=== PATIENT | male | born 1930 | race Caucasian/White ===

== ENCOUNTER 2016-08-26 06:51 | Day surgery (SDC) | payer MEDICARE, BC ==
--- NOTE | 2016-08-25 14:49 | NUR ---
PACEMAKER MODEL# [id number] SERIAL # [id number] GAMMA RAY OPERATOR :OparaTRONIC X [id number] IMPLANT DATE : 11/16/2011 PLACEMENT : Merry SALMON SQ DR: JORDYN KUNZ [phone]
[~2016-08-26] VITALS: Ht 185.4 cm; Wt 100.5 kg
[~2016-08-26 06:51] MED LIST: AMLO2.5T2 PO; ASPI-730 PO; CARV6.25 PO; FINA5TAB40 PO; GLIM4TAB3 PO; METF-206 PO; NAPR220C11 PO; PRAV20TA48 PO
--- OUTSIDE RECORDS SUMMARY | 2016-08-26 06:55 | XMS REPORT | Referral Summary ---
Author Author [facility], Family Medicine Organization [facility] Address Unknown Phone Unavailable Care Team Providers Care Structural Draftsman Name Role Phone Wali Broussard Primary Care Physician [phone] Encounter Date(s): 10/07/15 - 10/07/15 [facility], [address] [place] [address]- Discharge Disposition: 01-Home or Self Care Attending Physician: Fermín Broussard MD Admitting Physician: Fermín Broussard MD Vital Signs Most recent to 1 oldest [Reference Range]: Blood Pressure 128/64 mmHg [90-140/60-90 mmHg] (10/07/15 11:10 AM) Problem List Condition Effective Dates Status Health Status Informant hx of acute Active prostatitis, elevated PSA,& 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, pacemaker insertec(Confirmed)1 High Active Cholesterol(Confirme d) Hypertension/High Active BP(Confirmed) Encounter for Active prostate cancer screening(Confirmed) Diabetes-Type Active 2(Confirmed) Chicken Active Pox(Confirmed) 1DrRahat Elizabeth is EP doctor Allergies, Adverse Reactions, Alerts Substance Reaction Severity Status Biaxin Active hydrochlorothiazide ITCHING Active lisinopril ITCHING Active Medications Aleve mg, Oral, q8hr, as needed for pain, 0 Refill(s) Start Date: 02/21/14 Status: Ordered Amaryl 4 mg oral tablet See Instructions, TAKE ONE TABLET BY MOUTH TWICE A DAY, # 180 tabs, 1 Refill(s) , eRx: [facility] #[id number], TAKE ONE TABLET BY MOUTH TWICE A DAY Start Date: 05/19/15 Status: Ordered aspirin 325 mg, Oral, Daily, 0 Refill(s) Start Date: 09/09/13 Status: Ordered Contour Test strips Contour Test strips, See Instructions, Use to test blood sugar once daily. DX E11.9, # 100 Each, 3 Refill(s), Pharmacy: [facility] #[id number], Use to test blood sugar once daily. ; DX E11.9 Start Date: 08/06/15 Status: Ordered Coreg 6.25 mg oral tablet tabs, Oral, BID, Take 1 tablet by oral route BID QD with food., 0 Refill(s) Start Date: 09/09/13 Status: Ordered finasteride 5 mg oral tablet See Instructions, TAKE ONE TABLET BY MOUTH EVERY NIGHT AT BEDTIME, # 90 tabs, eRx: [facility] #[id number], TAKE ONE TABLET BY MOUTH EVERY NIGHT AT BEDTIME Start Date: 09/15/15 Status: Ordered Glucometer Lancets (DME) DME Item 31 gauge, test blood sugars daily DX:250.00, See Instructions, # 1 Each , 0 Refill(s), Supply Start Date: 09/09/13 Status: Ordered metFORMIN 1000 mg oral tablet See Instructions, TAKE ONE TABLET BY MOUTH TWICE A DAY Need appt in October, # 60 tabs, 0 Refill(s), Pharmacy: [facility] #[id number], TAKE ONE TABLET BY MOUTH TWICE A DAY; Need appt in October Start Date: 09/22/15 Status: Ordered Norvasc 2.5 mg oral tablet See Instructions, TAKE ONE TABLET BY MOUTH EVERY DAY, # 90 tabs, 3 Refill(s), eRx: [facility] #[id number], TAKE ONE TABLET BY MOUTH EVERY DAY Start Date: 03/10/15 Status: Ordered pravastatin 20 mg oral tablet See Instructions, TAKE ONE TABLET BY MOUTH EVERY DAY, # 90 tabs, eRx: [facility] #[id number], TAKE ONE TABLET BY MOUTH EVERY DAY Start Date: 09/15/15 Status: Ordered Results No data available for this section Immunizations Vaccine Date Refusal Reason influenza virus vaccine, live 01/11/12 tetanus-diphth toxoids (Td) adult/adol 04/24/02 Procedures Procedure Date Related Diagnosis Body Site Colonoscopy1 07/22/14 Heart Cath2 07/2011 Abnormal Treadmill3 06/2011 Eye Lid Surgeries4 12/25/10 Colonoscopies5 08/26/05 Pacemaker Second Degree Block 2003 Back surgery6 1999 Bilateral Carpal Tunnel Release 1998 Back surgery7 1979 Vasectomy 1973 Appendectomy 1952 Adenoidectomy 1936 Tonsillectomy 1936 1Diverticulosis, hyperplastic polyp, likely not need to repeat unless symptoms warrant. 2normal 3apical ischemia 4BLEPH/PTOSIS OU 5WNL,REPEAT 10 YES. 6repeat 7herniated disc from sneezing Social History Social History Type Response Smoking Status Former smoker Assessment and Plan Extracted from: Title: Ambulatory Patient Education Author: Fermín Broussard MD Date: Family Medicine Diabetes and Foot Care Diabetes may cause you to have problems because of poor blood supply ( circulation) to your feet and legs. This may cause the skin on your feet to become thinner, break easier, and heal more slowly. Your skin may become dry, and the skin may peel and crack. You may also have nerve damage in your legs and feet causing decreased feeling in them. You may not notice minor injuries to your feet that could lead to infections or more serious problems. Taking care of your feet is one of the most important things you can do for yourself. HOME CARE INSTRUCTIONS Wear shoes at all times, even in the house. Do not go barefoot. Bare feet are easily injured. Check your feet daily for blisters, cuts, and redness. If you cannot see the bottom of your feet, use a mirror or ask someone for help. Wash your feet with warm water (do not use hot water) and mild soap. Then pat your feet and the areas between your toes until they are completely dry. Do not soak your feet as this can dry your skin. Apply a moisturizing lotion or petroleum jelly (that does not contain alcohol and is unscented) to the skin on your feet and to dry, brittle toenails. Do not apply lotion between your toes. Trim your toenails straight across. Do not dig under them or around the cuticle. File the edges of your nails with an emery board or nail file. Do not cut corns or calluses or try to remove them with medicine. Wear clean socks or stockings every day. Make sure they are not too tight. Do not wear knee-high stockings since they may decrease blood flow to your legs. Wear shoes that fit properly and have enough cushioning. To break in new shoes, wear them for just a few hours a day. This prevents you from injuring your feet. Always look in your shoes before you put them on to be sure there are no objects inside. Do not cross your legs. This may decrease the blood flow to your feet. If you find a minor scrape, cut, or break in the skin on your feet, keep it and the skin around it clean and dry. These areas may be cleansed with mild soap and water. Do not cleanse the area with peroxide, alcohol, or iodine. When you remove an adhesive bandage, be sure not to damage the skin around it. If you have a wound, look at it several times a day to make sure it is healing. Do not use heating pads or hot water bottles. They may burn your skin. If you have lost feeling in your feet or legs, you may not know it is happening until it is too late. Make sure your health care provider performs a complete foot exam at least annually or more often if you have foot problems. Report any cuts, sores, or bruises to your health care provider immediately. SEEK MEDICAL CARE IF: You have an injury that is not healing. You have cuts or breaks in the skin. You have an ingrown nail. You notice redness on your legs or feet. You feel burning or tingling in your legs or feet. You have pain or cramps in your legs and feet. Your legs or feet are numb. Your feet always feel cold. SEEK IMMEDIATE MEDICAL CARE IF: There is increasing redness, swelling, or pain in or around a wound. There is a red line that goes up your leg. Pus is coming from a wound. You develop a fever or as directed by your health care provider. You notice a bad smell coming from an ulcer or wound. This information is not intended to replace advice given to you by your health care provider. Make sure you discuss any questions you have with your health care provider. Document Released: 03/25/2001 Document Revised: 11/28/2013 Document Reviewed: [facility] Patient Information 2016 [employer], [facility]. Preventive Medicine Heart Disease Prevention Heart disease is a leading cause of . There are many things you can do to help prevent heart disease. BE PHYSICALLY ACTIVE Physical activity is good for your heart. It helps control your blood pressure, cholesterol levels, and weight. Try to be physically active every day. Ask your health care provider what activities are best for you. BE A HEALTHY WEIGHT Extra weight can strain your heart and affect your blood pressure and cholesterol levels. Lose weight with diet and exercise if recommended by your health care provider. EAT HEART-HEALTHY FOODS Follow a healthy eating plan as recommended by your health care provider or dietitian. Heart-healthy foods include: High-fiber foods. These include oat bran, oatmeal, and whole-grain breads and cereals. Fruits and vegetables. Avoid: Alcohol. Fried foods. Foods high in saturated fat. These include meats, butter, whole dairy products, shortening, and coconut or palm oil. Salty foods. These include canned food, luncheon meat, salty snacks, and fast food. KEEP YOUR CHOLESTEROL LEVELS UNDER CONTROL Cholesterol is a substance that is used for many important functions. When your cholesterol levels are high, cholesterol can stick to the insides of your blood vessels, making them narrow or clog. This can lead to chest pain (angina) and a heart attack. Keep your cholesterol levels under control as recommended by your health care provider. Have your cholesterol checked at least once a year. Target cholesterol levels (in mg/dL) for most people are: Total cholesterol below 200. LDL cholesterol below 100. HDL cholesterol above 40 in men and above 50 in women. Triglycerides below 150. KEEP YOUR BLOOD PRESSURE UNDER CONTROL Having high blood pressure (hypertension) puts you at risk for stroke and other forms of heart disease. Keep your blood pressure under control as recommended by your health care provider. Ask your health care provider if you need treatment to lower your blood pressure. If you are 1839 years of age, have your blood pressure checked every 35 years. If you are 40 years of age or older, have your blood pressure checked every year. DO NOT USE TOBACCO PRODUCTS Tobacco smoke can damage your heart and blood vessels. Do not use any tobacco products including cigarettes, chewing tobacco, or electronic cigarettes. If you need help quitting, ask your health care provider. TAKE MEDICINES DIRECTED Take medicines only as directed by your health care provider. Ask your health care provider whether you should take an aspirin every day. Taking aspirin can help reduce your risk of heart disease and stroke. FOR MORE INFORMATION To find out more about heart disease, visit the [place] [employer]'s website at www.americanheart.org This information is not intended to replace advice given to you by your health care provider. Make sure you discuss any questions you have with your health care provider. Document Released: 11/09/2004 Document Revised: 04/18/2015 Document Reviewed: [employer] Patient Information 2016 [facility], [facility]. No follow up information was provided. Extracted from: Title: Office Visit Note Author: Fermín Broussard MD Date: 10/07/15 Assessment/Plan Diabetes-Type 2 Recheck lab in 2 months. Continue to work on diet and exercise. Ordered: Hemoglobin A1c Office Visit Level 3 Est 71035 High Cholesterol Lab in 2 months. Ordered: Lipid Panel Office Visit Level 3 Est 32191 Hypertension/High BP Controlled with current medications. Ordered: Basic Metabolic Panel Office Visit Level 3 Est 50525
--- OUTSIDE RECORDS SUMMARY | 2016-08-26 06:55 | XMS REPORT | Referral Summary ---
Author Author [facility], Family Medicine Organization [facility] Address Unknown Phone Unavailable Care Team Providers Care Pony Ride Operator Name Role Phone Wali Broussard Primary Care Physician [phone] Encounter Date(s): 04/28/15 - 04/28/15 [facility], [address] [place] [address] Discharge Disposition: 01-Home or Self Care Attending Physician: Fermín Broussard MD Admitting Physician: Fermín Broussard MD Vital Signs Most recent to 1 oldest [Reference Range]: Peripheral Pulse 88 bpm Rate [60-100 bpm] (04/28/15 10:07 AM) Blood Pressure 144/84 mmHg [90-140/60-90 mmHg] *HI* (04/28/15 10:07 AM) SpO2 96 % (04/28/15 10:07 AM) Problem List Condition Effective Dates Status [...] MOUTH TWICE A DAY, # 180 tabs, 2 Refill(s) , eRx: [facility] #[id number], TAKE ONE TABLET BY MOUTH TWICE A DAY Start Date: 08/26/14 Status: Ordered aspirin 325 mg, Oral, Daily, 0 Refill(s) Start Date: 09/09/13 Status: Ordered CONTOUR TEST STRIPS See Instructions, TEST BLOOD SUGARS DAILY, # 100 strip, 11 Refill(s), eRx: [facility] #[id number], TEST BLOOD SUGARS DAILY Start Date: 04/16/14 Status: Ordered Coreg 6.25 mg oral tablet tabs, Oral, BID, Take 1 tablet by oral route BID QD with food., 0 Refill(s) Start Date: 09/09/13 Status: Ordered finasteride 5 mg oral tablet See Instructions, TAKE ONE TABLET BY MOUTH EVERY NIGHT AT BEDTIME, # 90 tabs, eRx: [facility] #[id number], TAKE ONE TABLET BY MOUTH EVERY NIGHT AT BEDTIME Start Date: 03/17/15 Status: Ordered Glucometer Lancets (DME) DME Item 31 gauge, test blood sugars daily DX:250.00, See Instructions, # 1 Each , 0 Refill(s), Supply Start Date: 09/09/13 Status: Ordered metFORMIN 1000 mg oral tablet See Instructions, TAKE ONE TABLET BY MOUTH TWICE A DAY, # 180 tabs, eRx: [facility] #[id number], TAKE ONE TABLET BY MOUTH TWICE A DAY Start Date: 03/31/15 Status: Ordered Norvasc 2.5 mg oral tablet See Instructions, TAKE ONE TABLET BY MOUTH EVERY DAY, # 90 tabs, 3 Refill(s), eRx: [facility] #[id number], TAKE ONE TABLET BY MOUTH EVERY DAY Start Date: 03/10/15 Status: Ordered pravastatin 20 mg oral tablet See Instructions, TAKE ONE TABLET BY MOUTH EVERY DAY, # 90 tabs, eRx: [facility] #[id number], TAKE ONE TABLET BY MOUTH EVERY DAY Start Date: 03/17/15 Status: Ordered Results No data available for [...] Broussard MD Date: Family Medicine Diabetes and Exercise Exercising regularly is important. It is not just about losing weight. It has many health benefits, such as: Improving your overall fitness, flexibility, and endurance. Increasing your bone density. Helping with weight control. Decreasing your body fat. Increasing your muscle strength. Reducing stress and tension. Improving your overall health. People with diabetes who exercise gain additional benefits because exercise: Reduces appetite. Improves the body's use of blood sugar (glucose). Helps lower or control blood glucose. Decreases blood pressure. Helps control blood lipids (such as cholesterol and triglycerides). Improves the body's use of the hormone insulin by: Increasing the body's insulin sensitivity. Reducing the body's insulin needs. Decreases the risk for heart disease because exercising: Lowers cholesterol and triglycerides levels. Increases the levels of good cholesterol (such as high-density lipoproteins [HDL]) in the body. Lowers blood glucose levels. YOUR ACTIVITY PLAN Choose an activity that you enjoy and set realistic goals. Your health care provider or life skills educator can help you make an activity plan that works for you. Exercise regularly as directed by your health care provider. This includes: Performing resistance training twice a week such as push-ups, sit-ups, lifting weights, or using resistance bands. Performing 150 minutes of cardio exercises each week such as walking, running, or playing sports. Staying active and spending no more than 90 minutes at one time being inactive. Even short bursts of exercise are good for you. Three 10-minute sessions spread throughout the day are just as beneficial as a single 30-minute session. Some exercise ideas include: Taking the dog for a walk. Taking the stairs instead of the elevator. Dancing to your favorite song. Doing an exercise video. Doing your favorite exercise with a friend. RECOMMENDATIONS FOR EXERCISING WITH TYPE 1 OR TYPE 2 DIABETES Check your blood glucose before exercising. If blood glucose levels are greater than 240 mg/dL, check for urine ketones. Do not exercise if ketones are present. Avoid injecting insulin into areas of the body that are going to be exercised. For example, avoid injecting insulin into: The arms when playing tennis. The legs when jogging. Keep a record of: Food intake before and after you exercise. Expected peak times of insulin action. Blood glucose levels before and after you exercise. The type and amount of exercise you have done. Review your records with your health care provider. Your health care provider will help you to develop guidelines for adjusting food intake and insulin amounts before and after exercising. If you take insulin or oral hypoglycemic agents, watch for signs and symptoms of hypoglycemia. They include: Dizziness. Shaking. Sweating. Chills. Confusion. Drink plenty of water while you exercise to prevent dehydration or heat stroke. Body water is lost during exercise and must be replaced. Talk to your health care provider before starting an exercise program to make sure it is safe for you. Remember, almost any type of activity is better than none. Document Released: 06/17/2004 Document Revised: 08/12/2014 Document Reviewed: ExitCare Patient Information 2015 [facility]. This information is not intended to replace advice given to you by your health care provider. Make sure you discuss any questions you have with your health care provider. Diabetes and Foot Care Diabetes may cause [...] smell coming from an ulcer or wound. Document Released: 03/25/2001 Document Revised: 11/28/2013 Document Reviewed: ExitCare Patient Information 2015 [employer]. This information is not intended to replace advice given to you by your health care provider. Make sure you discuss any questions you have with your health care provider. No follow up information was provided. Extracted from: Title: Office Visit Note Author: Fermín Broussard MD Date: 04/28/15 Assessment/Plan 2nd degree heart block, pacemaker insertec Ordered: Office Visit Level 4 Est 82695 Diabetes-Type 2 Will get the lab this May. and will follow. No change in medication at this time. Ordered: Hemoglobin A1c Office Visit Level 4 Est 79813 High Cholesterol Ordered: Cholesterol HDL LDL Direct Office Visit Level 4 Est 46963 Triglycerides Hypertension/High BP Ordered: Basic Metabolic Panel CBC w/ Differential Office Visit Level 4 Est 43186
--- OUTSIDE RECORDS SUMMARY | 2016-08-26 06:56 | XMS REPORT | Referral Summary ---
Author Author [facility] Organization [facility] Address Unknown Phone Unavailable Care Team Providers Care Title Department Manager Name Role Phone Wali Broussard Primary Care Physician [phone] Encounter VC Date(s): 10/10/15 - 10/10/15 [facility] [address] [place] [address] 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 DX E11.9, # 100 Each, 3 Refill(s), Pharmacy: [facility] #[id number], Use to test blood sugar once daily. ; DX E11.9 Start Date: 08/06/15 Status: Ordered Coreg 6.25 mg oral tablet tabs, Oral, BID, Take 1 tablet by oral route BID QD with food., 0 Refill(s) Start Date: 09/09/13 Status: Ordered finasteride 5 mg oral tablet See Instructions, TAKE ONE TABLET BY MOUTH EVERY NIGHT AT BEDTIME, # 90 tabs, eRx: [facility] #[id number], TAKE ONE TABLET BY MOUTH EVERY NIGHT [...] October, # 60 tabs, 0 Refill(s), Pharmacy: [facility] #[id number], TAKE ONE TABLET BY MOUTH TWICE A DAY; Need appt in October Start Date: 09/22/15 Status: Ordered Norvasc 2.5 mg oral tablet See Instructions, TAKE ONE TABLET BY MOUTH EVERY DAY, # 90 tabs, 3 Refill(s), eRx: [facility] #[id number], TAKE ONE TABLET BY MOUTH EVERY DAY Start Date: 03/10/15 Status: Ordered pravastatin 20 mg oral tablet See Instructions, TAKE ONE TABLET BY MOUTH EVERY DAY, # 90 tabs, eRx: [facility] #[id number], TAKE ONE TABLET BY MOUTH EVERY DAY Start Date: 09/15/15 Status: Ordered Results No data available for this section Immunizations Vaccine Date Refusal Reason influenza virus vaccine, live 01/11/12 tetanus-diphth toxoids (Td) adult/adol 04/24/02 Procedures Procedure Date Related Diagnosis Body Site Destruction (eg, laser surgery, 10/10/15 electrosurgery, cryosurgery, chemosurgery, surgical curettement), premalignant lesions (eg, actinic keratoses); first lesion Destruction (eg, laser surgery, 10/10/15 electrosurgery, cryosurgery, chemosurgery, surgical curettement), premalignant lesions (eg, actinic keratoses); second through 14 lesions, each (List separately in addition to code for first lesion) Colonoscopy1 07/22/14 Heart Cath2 07/2011 Abnormal Treadmill3 06/2011 Eye Lid Surgeries4 12/25/10 Colonoscopies5 08/26/05 Pacemaker Second Degree Block 2003 Back surgery6 1999 Bilateral Carpal Tunnel Release 1998 Back surgery7 1980 Vasectomy 1973 Appendectomy 195 Adenoidectomy 193 Tonsillectomy 1936 1Diverticulosis, hyperplastic polyp, likely not need to repeat unless symptoms warrant. 2normal 3apical ischemia 4BLEPH/PTOSIS OU 5WNL,REPEAT 10 YES. 6repeat 7herniated disc from sneezing Social History Social History Type Response Smoking Status Former smoker Assessment and Plan Extracted from: Title: Office Visit Note Author: Tomas Silva Date: 10/10/15 Assessment/Plan AK (actinic keratosis) 7lesions were treated with LN2: right helix x1, left helix x3 scalp x3. Aftercare instructions were given to patient. Possible risks of scarring, infection, blistering, and recurrence were discussed prior to the procedure. Continue photoprotection. Follow up in 6 months, sooner if needed. Ordered: Destruction premalignant lesion 1st 33508 Destruction premalignant lesion 2-14, Each 50024 Office Visit Level 3 Est 18948 Seborrheic keratosis Benign, asymptomatic; reassurance was given. Ordered: Office Visit Level 3 Est 83421
--- OUTSIDE RECORDS SUMMARY | 2016-08-26 06:56 | XMS REPORT | Referral Summary ---
Author Author [facility], Family Medicine Organization [facility] Address Unknown Phone Unavailable Care Team Providers Care Midwife Practitioner Name Role Phone Wali Broussard Primary Care Physician [phone] Encounter Date(s): 01/20/16 - 01/20/16 [facility], [address] [place] [address]- Discharge Diagnosis: Diabetes-Type 2 Discharge Diagnosis: High Cholesterol Discharge Diagnosis: Hypertension/High BP Discharge Disposition: 01-Home or Self Care Attending Physician: Fermín Broussard MD Admitting Physician: Fermín Broussard MD Vital Signs Most recent to 1 oldest [Reference Range]: Blood Pressure 138/70 mmHg [90-140/60-90 mmHg] (01/20/16 9:19 AM) Problem List Condition Effective Dates Status [...] 0 Refill(s) Start Date: 02/21/14 Status: Ordered aspirin 325 mg, Oral, Daily, 0 Refill(s) Start Date: 09/09/13 Status: Ordered Contour Test strips Contour Test strips, See Instructions, Use to test blood sugar once daily. DX E11.9, # 100 Each, 3 Refill(s), Pharmacy: [facility] #[id number], Use to test blood sugar once daily. ; DX E11.9 Start Date: 08/06/15 Status: Ordered Coreg 6.25 mg oral tablet tabs, Oral, BID, Take 1 tablet by oral route BID QD with food., 0 Refill(s) Start Date: 09/09/13 Status: Ordered finasteride 5 mg oral tablet See Instructions, TAKE ONE TABLET BY MOUTH EVERY NIGHT AT BEDTIME, # 90 tabs, 1 Refill(s), Pharmacy: [facility] #[id number], TAKE ONE TABLET BY MOUTH EVERY NIGHT AT BEDTIME Start Date: 12/16/15 Status: Ordered glimepiride 4 mg oral tablet See Instructions, TAKE ONE TABLET BY MOUTH TWICE A DAY, # 180 tabs, eRx: [facility] #[id number], TAKE ONE TABLET BY MOUTH TWICE A DAY Start Date: 11/17/15 Status: Ordered Glucometer Lancets (DME) DME Item 31 gauge, test blood sugars daily DX:250.00, See Instructions, # 1 Each , 0 Refill(s), Supply Start Date: 09/09/13 Status: Ordered metFORMIN 1000 mg oral tablet See Instructions, TAKE ONE TABLET BY MOUTH TWICE A DAY NEED APPOINTMENT IN OCTOBER, # 60 tabs, eRx: [facility] #[id number], TAKE ONE TABLET BY MOUTH TWICE A DAY NEED APPOINTMENT IN OCTOBER Start Date: 12/29/15 Status: Ordered Norvasc 2.5 mg oral tablet See Instructions, TAKE ONE TABLET BY MOUTH EVERY DAY, # 90 tabs, 3 Refill(s), eRx: [facility] #[id number], TAKE ONE TABLET BY MOUTH EVERY DAY Start Date: 03/10/15 Status: Ordered pravastatin 20 mg oral tablet See Instructions, TAKE ONE TABLET BY MOUTH EVERY DAY, # 90 tabs, eRx: [facility] #[id number], TAKE ONE TABLET BY MOUTH EVERY DAY Start Date: 12/13/15 Status: Ordered Results No data available for [...] 1998 Back surgery7 1980 Vasectomy 1973 Appendectomy 1952 Adenoidectomy 1936 Tonsillectomy 1936 1Diverticulosis, hyperplastic polyp, likely not need to repeat unless symptoms warrant. 2normal 3apical ischemia 4BLEPH/PTOSIS OU 5WNL,REPEAT 10 YES. 6repeat 7herniated disc from sneezing Social History Social History Type Response Smoking Status Former smoker Assessment and Plan Extracted from: Title: Ambulatory Patient Education Author: Fermín Broussard MD Date: 02/24 Family Medicine Diabetes and Standards of Medical Care Diabetes is complicated. You may find that your diabetes team includes a dietitian, nurse, family living educator, eye doctor, and more. To help everyone know what is going on and to help you get the care you deserve, the following schedule of care was developed to help keep you on track. Below are the tests, exams, vaccines, medicines, education, and plans you will need. HbA1c test This test shows how well you have controlled your glucose over the past 23 months. It is used to see if your diabetes management plan needs to be adjusted. It is performed at least 2 times a year if you are meeting treatment goals. It is performed 4 times a year if therapy has changed or if you are not meeting treatment goals. Blood pressure test This test is performed at every routine medical visit. The goal is less than 140/90 mm Hg for most people, but 130/80 mm Hg in some cases. Ask your health care provider about your goal. Dental exam Follow up with the dentist regularly. Eye exam If you are diagnosed with type 1 diabetes as a child, get an exam upon reaching the age of 10 years or older and having had diabetes for 35 years. Yearly eye exams are recommended after that initial eye exam. If you are diagnosed with type 1 diabetes as an adult, get an exam within 5 years of diagnosis and then yearly. If you are diagnosed with type 2 diabetes, get an exam as soon as possible after the diagnosis and then yearly. Foot care exam Visual foot exams are performed at every routine medical visit. The exams check for cuts, injuries, or other problems with the feet. You should have a complete foot exam performed every year. This exam includes an inspection of the structure and skin of your feet, a check of the pulses in your feet, and a check of the sensation in your feet. Type 1 diabetes: The first exam is performed 5 years after diagnosis. Type 2 diabetes: The first exam is performed at the time of diagnosis. Check your feet nightly for cuts, injuries, or other problems with your feet. Tell your health care provider if anything is not healing. Kidney function test (urine microalbumin) This test is performed once a year. Type 1 diabetes: The first test is performed 5 years after diagnosis. Type 2 diabetes: The first test is performed at the time of diagnosis. A serum creatinine and estimated glomerular filtration rate (eGFR) test is done once a year to assess the level of chronic kidney disease (CKD), if present. Lipid profile (cholesterol, HDL, LDL, triglycerides) Performed every 5 years for most people. The goal for LDL is less than 100 mg/dL. If you are at high risk, the goal is less than 70 mg/dL. The goal for HDL is 40 mg/dL50 mg/dL for men and 50 mg/dL60 mg/dL for women. An HDL cholesterol of 60 mg/dL or higher gives some protection against heart disease. The goal for triglycerides is less than 150 mg/dL. Immunizations The flu (influenza) vaccine is recommended yearly for every person 6 months of age or older who has diabetes. The pneumonia (pneumococcal) vaccine is recommended for every person 2 years of age or older who has diabetes. Adults 65 years of age or older may receive the pneumonia vaccine as a series of two separate shots. The hepatitis B vaccine is recommended for adults shortly after they have been diagnosed with diabetes. The Tdap (tetanus, diphtheria, and pertussis) vaccine should be given: According to normal childhood vaccination schedules, for children. Every 10 years, for adults who have diabetes. Diabetes self-management education Education is recommended at diagnosis and ongoing as needed. Treatment plan Your treatment plan is reviewed at every medical visit. This information is not intended to replace advice given to you by your health care provider. Make sure you discuss any questions you have with your health care provider. Document Released: 01/23/2010 Document Revised: 04/18/2015 Document Reviewed: ExitCare Patient Information 2016 [facility], [facility]. Preventive Medicine Managing Your High Blood Pressure Blood pressure is a measurement of how forceful your blood is pressing against the phillips of the arteries. Arteries are muscular tubes within the circulatory system. Blood pressure does not stay the same. Blood pressure rises when you are active, excited, or nervous; and it lowers during sleep and relaxation. If the numbers measuring your blood pressure stay above normal most of the time, you are at risk for health problems. High blood pressure (hypertension) is a long-term (chronic) condition in which blood pressure is elevated. A blood pressure reading is recorded as two numbers, such as 120 over 80 (or 120 /80). The first, higher number is called the systolic pressure. It is a measure of the pressure in your arteries as the heart beats. The second, lower number is called the diastolic pressure. It is a measure of the pressure in your arteries as the heart relaxes between beats. Keeping your blood pressure in a normal range is important to your overall health and prevention of health problems, such as heart disease and stroke. When your blood pressure is uncontrolled, your heart has to work harder than normal. High blood pressure is a very common condition in adults because blood pressure tends to rise with age. Men and women are equally likely to have hypertension but at different times in life. Before age 45, men are more likely to have hypertension. After 65 years of age, women are more likely to have it. Hypertension is especially common in Americans. This condition often has no signs or symptoms. The cause of the condition is usually not known. Your caregiver can help you come up with a plan to keep your blood pressure in a normal, healthy range. BLOOD PRESSURE STAGES Blood pressure is classified into four stages: normal, prehypertension, stage 1 , and stage 2. Your blood pressure reading will be used to determine what type of treatment, if any, is necessary. Appropriate treatment options are tied to these four stages: Normal Systolic pressure (mm Hg): below 120. Diastolic pressure (mm Hg): below 80. Prehypertension Systolic pressure (mm Hg): 120 to 139. Diastolic pressure (mm Hg): 80 to 89. Stage1 Systolic pressure (mm Hg): 140 to 159. Diastolic pressure (mm Hg): 90 to 99. Stage2 Systolic pressure (mm Hg): 160 or above. Diastolic pressure (mm Hg): 100 or above. RISKS RELATED TO HIGH BLOOD PRESSURE Managing your blood pressure is an important responsibility. Uncontrolled high blood pressure can lead to: A heart attack. A stroke. A weakened blood vessel (aneurysm). Heart failure. Kidney damage. Eye damage. Metabolic syndrome. Memory and concentration problems. HOW TO MANAGE YOUR BLOOD PRESSURE Blood pressure can be managed effectively with lifestyle changes and medicines ( if needed). Your caregiver will help you come up with a plan to bring your blood pressure within a normal range. Your plan should include the following: Education Read all information provided by your caregivers about how to control blood pressure. Educate yourself on the latest guidelines and treatment recommendations. New research is always being done to further define the risks and treatments for high blood pressure. Lifestylechanges Control your weight. Avoid smoking. Stay physically active. Reduce the amount of salt in your diet. Reduce stress. Control any chronic conditions, such as high cholesterol or diabetes. Reduce your alcohol intake. Medicines Several medicines (antihypertensive medicines) are available, if needed, to bring blood pressure within a normal range. Communication Review all the medicines you take with your caregiver because there may be side effects or interactions. Talk with your caregiver about your diet, exercise habits, and other lifestyle factors that may be contributing to high blood pressure. See your caregiver regularly. Your caregiver can help you create and adjust your plan for managing high blood pressure. RECOMMENDATIONS FOR TREATMENT AND FOLLOW-UP The following recommendations are based on current guidelines for managing high blood pressure in non adults. Use these recommendations to identify the proper follow-up period or treatment option based on your blood pressure reading. You can discuss these options with your caregiver. Systolic pressure of 120 to 139 or diastolic pressure of 80 to 89: Follow up with your caregiver as directed. Systolic pressure of 140 to 160 or diastolic pressure of 90 to 100: Follow up with your caregiver within 2 months. Systolic pressure above 160 or diastolic pressure above 100: Follow up with your caregiver within 1 month. Systolic pressure above 180 or diastolic pressure above 110: Consider antihypertensive therapy; follow up with your caregiver within 1 week. Systolic pressure above 200 or diastolic pressure above 120: Begin antihypertensive therapy; follow up with your caregiver within 1 week. This information is not intended to replace advice given to you by your health care provider. Make sure you discuss any questions you have with your health care provider. Document Released: 12/20/2012 Document Reviewed: 12/20/2012 ExitCare Patient Information 2016 [facility]. No follow up information was provided. Extracted from: Title: Office Visit Note Author: Fermín Broussard MD Date: 01/20/16 Assessment/Plan Diabetes-Type 2 Continue with the current treatment and follow up in 3 months. Ordered: Periodic Comp Preventive Med 65+ years Est 85016 High Cholesterol lab looks good Ordered: Periodic Comp Preventive Med 65+ years Est 76943 Hypertension/High BP Well controlled and no change in treatment. Ordered: Periodic Comp Preventive Med 65+ years Est 28464
--- OUTSIDE RECORDS SUMMARY | 2016-08-26 06:56 | XMS REPORT | Referral Summary ---
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 Discharge Diagnosis: Seborrheic keratosis Discharge Diagnosis: Actinic keratoses Discharge Disposition: 01-Home or Self Care Attending Physician: Ras Ramirez MD Admitting Physician: Ras Ramirez MD Vital Signs No data available for this [...] # 180 tabs, 2 Refill(s) , eRx: [facility] #[id number], TAKE ONE TABLET BY MOUTH TWICE A DAY Start Date: 08/26/14 Status: Ordered aspirin 325 mg, Oral, Daily, 0 Refill(s) Start Date: 09/09/13 Status: Ordered CONTOUR TEST STRIPS See Instructions, TEST BLOOD SUGARS DAILY, # 100 strip, 11 Refill(s), eRx: [facility] #[id number], TEST BLOOD SUGARS DAILY Start Date: 04/16/14 Status: Ordered Coreg 6.25 mg oral tablet tabs, Oral, BID, Take 1 tablet by oral route BID QD with food., 0 Refill(s) Start Date: 09/09/13 Status: Ordered finasteride 5 mg oral tablet See Instructions, TAKE ONE TABLET BY MOUTH EVERY NIGHT AT BEDTIME, # 90 tabs, eRx: [facility] #[id number], TAKE ONE TABLET BY MOUTH EVERY NIGHT AT BEDTIME Start Date: 03/17/15 Status: Ordered Glucometer Lancets (DME) DME Item 31 gauge, test blood sugars daily DX:250.00, See Instructions, # 1 Each , 0 Refill(s), Supply Start Date: 09/09/13 Status: Ordered metFORMIN 1000 mg oral tablet See Instructions, TAKE ONE TABLET BY MOUTH TWICE A DAY, # 180 tabs, eRx: [facility] #[id number], TAKE ONE TABLET BY MOUTH TWICE A DAY Start Date: 12/23/14 Status: Ordered Norvasc 2.5 mg oral tablet See Instructions, TAKE ONE TABLET BY MOUTH EVERY DAY, # 90 tabs, 3 Refill(s), eRx: [facility] #[id number], TAKE ONE TABLET BY MOUTH EVERY DAY Start Date: 03/10/15 Status: Ordered pravastatin 20 mg oral tablet See Instructions, TAKE ONE TABLET BY MOUTH EVERY DAY, # 90 tabs, eRx: [facility] #[id number], TAKE ONE TABLET BY MOUTH EVERY DAY Start Date: 03/17/15 Status: Ordered Results No data available for this section Immunizations Vaccine Date Refusal Reason influenza virus vaccine, live 01/11/12 tetanus-diphth toxoids (Td) adult/adol 04/24/02 Procedures Procedure Date Related Diagnosis Body Site Destruction (eg, laser surgery, 09/11/14 electrosurgery, cryosurgery, chemosurgery, surgical curettement), premalignant lesions (eg, actinic keratoses); first lesion Destruction (eg, laser surgery, 09/11/14 electrosurgery, cryosurgery, chemosurgery, surgical curettement), premalignant lesions (eg, actinic keratoses); second through 14 lesions, each (List separately in addition to code for first lesion) Colonoscopy1 07/22/14 Heart Cath2 07/2011 Abnormal Treadmill3 06/2011 Eye Lid Surgeries4 12/25/10 Colonoscopies5 08/26/05 Pacemaker Second Degree Block 2003 Back surgery6 1999 Bilateral Carpal Tunnel Release 1998 Back surgery7 1980 Vasectomy 1973 Appendectomy 1952 Adenoidectomy 193 Tonsillectomy 1936 1Diverticulosis, hyperplastic polyp, likely not need to repeat unless symptoms warrant. 2normal 3apical ischemia 4BLEPH/PTOSIS OU 5WNL,REPEAT 10 YES. 6repeat 7herniated disc from sneezing Social History Social History Type Response Smoking Status Former smoker Assessment and Plan Extracted from: Title: Office Visit Note Author: Ras Ramirez MD Date: 09/11/14 Assessment/Plan Actinic keratoses Capillary hemangioma Seborrheic keratosis Seborrheic keratosis, inflamed Solar degeneration
--- OUTSIDE RECORDS SUMMARY | 2016-08-26 06:56 | XMS REPORT | Continuity of Care Document ---
Author Author Hammad [facility] Organization [facility] Address Unknown Phone Unavailable Support Name Relationship Address Phone RASHAAD BREEN FACS, MD Caregiver [address] [place] [address] [address] [place], [phone] KATIE MCKEON MD Caregiver [address] [place] [address] [place] [address] [phone] AADM RODRIGUEZ Next Of Kin [address] [place] [address] [id number] Insurance Providers Payer Name Policy Number Subscriber Name Relationship Medicare [id number] Cameron Rodriguez 18 Self [facility] [id number] Cameron Rodriguez 18 Self Advance Directives Directive Response Recorded Date/Time Dr Richards Resuscitation Status Full Code 07/19/14 3:25pm Resuscitation Documents on File No 07/19/14 3:16pm Problems No known problems or medical conditions. Medications Medication Dose Route Sig Days/Qty Instructions Order Date Discontinued Date Status Metformin Hcl 1,000 Mg PO TWICE A DAY 06/03/11 Active Glimepiride 2 Mg PO TWICE A DAY 06/03/11 07/19/14 Discontinued Finasteride 5 Mg PO DAILY 06/03/11 Active Pravastatin Sodium 20 Mg PO DAILY 06/03/11 Active Lisinopril 10 Mg PO DAILY 06/03/11 06/03/11 Discontinued Aspirin 325 Mg PO DAILY 06/03/11 Active Glimepiride 1 Tab PO TWICE A DAY BEST TAKEN WITH BREAKFAST. 07/19/14 Active Naproxen Sodium 220 Mg PO Every 8 Hours PRN PAIN 07/19/14 Active Carvedilol 1 Tab PO TWICE DAILY WITH MEALS 07/19/14 Active Amlodipine Besylate 2.5 Mg PO DAILY 07/19/14 Active Social History Social History Problem Response Recorded Date/Time Chewing Tobacco Status N 23 YEARS AGO QUIT 07/22/2014 7:04am Hx Substance Use No 07/22/2014 7:04am Hx Alcohol Use No 07/22/2014 7:04am Has the pt used tobacco in the last 12 months No 07/22/2014 7:04am Query Response Start Date Stop Date Smoking Status Former smoker Hospital Discharge Instructions No hospital discharge instructions. Plan of Care No plan of care. Functional Status No functional status results. Allergies, Adverse Reactions, Alerts Allergen Type Severity Reaction Status Last Updated Lisinopril Allergy Mild ITCHING Active 07/19/14 Hydrochlorothiazide Allergy Mild ITCHING Active 07/19/14 Clarithromycin Adverse Reaction Unknown DIARRHEA Active 06/03/11 Immunizations Name Given Type Hx Influenza Vaccination Y FALL 2013 Historical Hx Pneumococcal Vaccination No Historical Hx Influenza Vaccination Y FALL 2013 Historical Vital Signs Acute Vital Signs Vital Response Date/Time Temperature (Fahrenheit) 97.7 deg F (96.8 - 99.1) Temperature (Calculated Celsius) 36.15499 degrees C (36.0 - 37.3) Temperature Source Temporal Pulse Rate (adult) 70 bpm (60 - 100) Respiratory Rate 16 breaths/min (10 - 20) O2 Sat by Pulse Oximetry 96 % (90 - 100) Oxygen Delivery Method Room Air Blood Pressure 158/75 mm Hg Blood Pressure Source Automatic Cuff Height 6 ft 1 in Weight 220 lb Body Mass Index 29.0 kg/m^2 Results Test Source Date Result Interp. Ref. Range Comments Glucometer July 22, 2014 6:54am 157 mg/dL H 75-110 Activated Partial Thromboplast Time June 03, 2011 3:25pm 37.7 SEC H 24-36 Alanine Aminotransferase (ALT/SGPT) June 03, 2011 3:25pm 15 U/L L 21 -72 Albumin June 03, 2011 3:25pm 4.7 G/DL N 3.5-5.0 Albumin/Globulin Ratio June 03, 2011 3:25pm 1.6 RATIO N 1.1-2.2 Alkaline Phosphatase June 03, 2011 3:25pm 49 U/L N 38-126 Anion Gap June 03, 2011 3:25pm 12 MEQ/L N 5-15 Aspartate Amino Transf (AST/SGOT) June 03, 2011 3:25pm 30 U/L N 17- 59 BUN/Creatinine Ratio June 03, 2011 3:25pm 26 RATIO N 6-26 Basophils # (Auto) June 03, 2011 3:25pm 0.0 T/MM3 N 0-0.2 Basophils (%) (Auto) June 03, 2011 3:25pm 0.3 % N 0-2 Blood Urea Nitrogen June 03, 2011 3:25pm 29.0 MG/DL H 9-20 Calcium Level June 03, 2011 3:25pm 9.7 MG/DL N 8.4-10.2 Calculated Osmolality June 03, 2011 3:25pm 280 MOSM/KG N 261-280 Carbon Dioxide Level June 03, 2011 3:25pm 28 MEQ/L N 22-30 Chloride Level June 03, 2011 3:25pm 102 MEQ/L N 98-107 Conjugated Bilirubin June 03, 2011 3:25pm 0.00 MG/DL N 0.00-0.30 Creatinine June 03, 2011 3:25pm 1.1 MG/DL N 0.8-1.5 D-Dimer June 03, 2011 4:26pm < 150 NG/ML 0-230 <224 NG/ML= PRESUMPTIVE NEGATIVE FOR PE OR DVT>224 NG/ML=ADDITIONAL EVALUATION FOR PE OR DVT RECOMMENDED Eosinophils # (Auto) June 03, 2011 3:25pm 0.1 T/MM3 N 0-0.5 Eosinophils (%) (Auto) June 03, 2011 3:25pm 1.7 % N 0-4 Globulin June 03, 2011 3:25pm 2.9 G/DL N 2.4-3.6 Glucose Level June 03, 2011 3:25pm 123 MG/DL H 75-110 Hematocrit June 03, 2011 3:25pm 42.0 % N 41-53 Hemoglobin June 03, 2011 3:25pm 14.1 GM/DL N 13.5-17.5 Lymphocytes # (Auto) June 03, 2011 3:25pm 1.6 T/MM3 N 1-4.8 Lymphocytes (%) (Auto) June 03, 2011 3:25pm 23.1 % N 23-45 Mean Corpuscular Hemoglobin June 03, 2011 3:25pm 32.2 UUG N 26-34 Mean Corpuscular Hemoglobin Concent June 03, 2011 3:25pm 33.6 GM/DL N 31-37 Mean Corpuscular Volume June 03, 2011 3:25pm 95.9 UM3 N 80-100 Mean Platelet Volume June 03, 2011 3:25pm 10.1 UM3 N 9.4-12.4 Monocytes # (Auto) June 03, 2011 3:25pm 0.7 T/MM3 N 0-0.8 Monocytes (%) (Auto) June 03, 2011 3:25pm 9.3 % H 0-9.0 Neutrophils # (Auto) June 03, 2011 3:25pm 4.7 T/MM3 N 1.8-7.7 Neutrophils (%) (Auto) June 03, 2011 3:25pm 65.6 % N 33-66 Platelet Count June 03, 2011 3:25pm 284 T/MM3 N 130-400 Potassium Level June 03, 2011 3:25pm 4.2 MEQ/L N 3.6-5 Prothromb Time International Ratio June 03, 2011 3:25pm 1.02 N 0.86- 1.10 THERAPUTIC RANGE=2.00-3.00 FOR ANTI-THROMBOSIS THERAPUTIC RANGE=2.50- 3.50 FOR IMPLANTED VALVE RDW Standard Deviation June 03, 2011 3:25pm 42.6 FL N 36.9-50.2 Red Blood Count June 03, 2011 3:25pm 4.38 M/MM3 L 4.50-5.90 Sodium Level June 03, 2011 3:25pm 142 MEQ/L N 134-144 Total Bilirubin June 03, 2011 3:25pm 0.50 MG/DL N 0.20-1.30 Total Protein June 03, 2011 3:25pm 7.6 G/DL N 6.3-8.2 Troponin I June 03, 2011 3:25pm < 0.012 ng/ml 0-0.12 Unconjugated Bilirubin June 03, 2011 3:25pm 0.00 MG/DL N 0.00-1.10 White Blood Count June 03, 2011 3:25pm 7.1 T/MM3 N 4.5-11.0 Glomerular Filtration Rate Calc June 03, 2011 3:25pm 65 - Immature Granulocyte # (Auto) June 03, 2011 3:25pm 0.00 T/MM3 N 0.00 -0.03 Immature Granulocyte % (Auto) June 03, 2011 3:25pm 0.0 % N 0.0-0.5 SO-Scn-S-Type Natriuretic Peptide June 03, 2011 3:25pm 99 PG/ML N 0- 175 Rule in cut points: <50 years old=450; 50-75 years old=900; >75 years old=1800; When utilizing ProBNP rule-in cut points, adjustment for impaired renal function is typically not required. Procedures Procedure Status Date Provider(s) Colonoscopy with polypectomy and biopsy completed 07/22/14 RASHAAD BREEN MD, FACS, CWS
--- OUTSIDE RECORDS SUMMARY | 2016-08-26 06:56 | XMS REPORT | Referral Summary ---
Author Author [facility] Organization [facility] Address Unknown Phone Unavailable Care Team Providers Care Janitor Helper Name Role Phone Wali Broussard Primary Care Physician [phone] Encounter Date(s): 03/18/16 - 03/18/16 [facility] [address] [place] [address] [facility] Discharge Disposition: 01-Home or Self Care Attending Physician: Tomas Silva Admitting Physician: Tomas Silva Vital Signs No data available for this section Problem List Condition Effective Dates Status Health Status Informant hx of acute Active prostatitis, elevated PSA,& 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 Clara is EP doctor Allergies, Adverse Reactions, Alerts Substance Reaction Severity Status Biaxin Active hydrochlorothiazide ITCHING Active lisinopril ITCHING Active Medications Aleve mg, Oral, q8hr, as needed for pain, 0 Refill(s) Start Date: 02/21/14 Status: Ordered amLODIPine 2.5 mg oral tablet See Instructions, TAKE ONE TABLET BY MOUTH EVERY DAY, # 90 tabs, 2 Refill(s), eRx: [facility] #[id number], TAKE ONE TABLET BY MOUTH EVERY DAY Start Date: 03/08/16 Status: Ordered aspirin 325 mg, Oral, Daily, 0 Refill(s) Start Date: 09/09/13 Status: Ordered Contour Test strips Contour Test strips, See Instructions, Use to test blood sugar once daily. DX E11.9, # 100 Each, 3 Refill(s), Pharmacy: [facility] #[id number], Use to test blood sugar once daily. ; DX E11.9 Start Date: 08/06/15 Status: Ordered Coreg 6.25 mg oral tablet tabs, Oral, BID, Take 1 tablet by oral route BID QD with food., 0 Refill(s) Start Date: 09/09/13 Status: Ordered finasteride 5 mg oral tablet See Instructions, TAKE ONE TABLET BY MOUTH EVERY NIGHT AT BEDTIME, # 90 tabs, 1 Refill(s), Pharmacy: [facility] #[id number], TAKE ONE TABLET BY MOUTH EVERY NIGHT AT BEDTIME Start Date: 12/16/15 Status: Ordered glimepiride 4 mg oral tablet See Instructions, TAKE ONE TABLET BY MOUTH TWICE A DAY, # 180 tabs, eRx: [facility] #[id number], TAKE ONE TABLET BY MOUTH TWICE A DAY Start Date: 02/16/16 Status: Ordered Glucometer Lancets (DME) DME Item 31 gauge, test blood sugars daily DX:250.00, See Instructions, # 1 Each , 0 Refill(s), Supply Start Date: 09/09/13 Status: Ordered metFORMIN 1000 mg oral tablet See Instructions, TAKE ONE TABLET BY MOUTH TWICE A DAY, # 60 tabs, 4 Refill(s), eRx: [facility] #[id number], TAKE ONE TABLET BY MOUTH TWICE A DAY Start Date: 02/23/16 Status: Ordered pravastatin 20 mg oral tablet See Instructions, TAKE ONE TABLET BY MOUTH EVERY DAY, # 90 tabs, eRx: [facility] #[id number], TAKE ONE TABLET BY MOUTH EVERY DAY Start Date: 03/11/16 Status: Ordered Results No data available for this section Immunizations Vaccine Date Refusal Reason influenza virus vaccine, live 01/11/12 tetanus-diphth toxoids (Td) adult/adol 04/24/02 Procedures Procedure Date Related Diagnosis Body Site Destruction (eg, laser surgery, 03/18/16 electrosurgery, cryosurgery, chemosurgery, surgical curettement), premalignant lesions (eg, actinic keratoses); first lesion Destruction (eg, laser surgery, 03/18/16 electrosurgery, cryosurgery, chemosurgery, surgical curettement), premalignant lesions (eg, actinic keratoses); second through 14 lesions, each (List separately in addition to code for first lesion) Excision of squamous cell carcinoma1 02/18/16 Colonoscopy2 07/22/14 Heart Cath3 07/2011 Abnormal Treadmill4 06/2011 Eye Lid Surgeries5 12/25/10 Colonoscopies6 08/26/05 Pacemaker Second Degree Block 2003 Back surgery7 1999 Bilateral Carpal Tunnel Release 1998 Back surgery8 1980 Vasectomy 1973 Appendectomy 1952 Adenoidectomy 193 Tonsillectomy 1936 1Left ear pinna 2Diverticulosis, hyperplastic polyp, likely not need to repeat unless symptoms warrant. 3normal 4apical ischemia 5BLEPH/PTOSIS OU 6WNL,REPEAT 10 YES. 7repeat 8herniated disc from sneezing Social History Social History Type Response Smoking Status Former smoker Assessment and Plan Extracted from: Title: Office Visit Note Author: Tomas Silva Date: 03/18/16 Assessment/Plan AK (actinic keratosis) 4lesions were treated with LN2: Right nondenominational 2, left nondenominational 1, right dorsum handx1. Aftercare instructions were given to patient. Possible risks of scarring, infection, blistering, and recurrence were discussed prior to the procedure. Continue photoprotection. Follow up in 6 months, sooner if needed. Ordered: Destruction premalignant lesion 1st 21617 Destruction premalignant lesion 2-14, Each 65608 Office Visit Level 3 Est 88480 Photoaging of skin Continue to monitor skin for changes and to follow up if any changes are seen. Instructed/reminded patient of proper application and use of sunscreen. Apply SPF 30 or higher with UVA and UVB protection. Skin cancers discussed and handout/information given. Recommend yearly skin evaluations. Ordered: Office Visit Level 3 Est 49785 Seborrheic keratosis Benign, asymptomatic; reassurance was given. Ordered: Office Visit Level 3 Est 02653
--- OUTSIDE RECORDS SUMMARY | 2016-08-26 06:56 | XMS REPORT | Referral Summary ---
Author Author [facility] Organization [facility] Address Unknown Phone Unavailable Care Team Providers Care Media Marketing Manager Name Role Phone Wali Broussard Primary Care Physician [phone] Encounter Date(s): 06/12/15 - 06/12/15 [facility] [address] [place] [address] [facility] Discharge Diagnosis: Other seborrheic keratosis Discharge Diagnosis: Actinic keratosis Discharge Disposition: 01-Home or Self Care Attending [...] # 180 tabs, 1 Refill(s) , eRx: [facility] #[id number], TAKE ONE TABLET BY MOUTH TWICE A DAY Start Date: 05/19/15 Status: Ordered aspirin 325 mg, Oral, Daily, 0 Refill(s) Start Date: 09/09/13 Status: Ordered CONTOUR TEST STRIPS See Instructions, TEST BLOOD SUGARS DAILY, # 100 strip, 11 Refill(s), eRx: [facility] #[id number], TEST BLOOD SUGARS DAILY Start Date: 04/16/14 Status: Ordered Coreg 6.25 mg oral tablet tabs, Oral, BID, Take 1 tablet by oral route BID QD with food., 0 Refill(s) Start Date: 09/09/13 Status: Ordered finasteride 5 mg oral tablet See Instructions, TAKE ONE TABLET BY MOUTH EVERY NIGHT AT BEDTIME, # 90 tabs, eRx: [facility] #[id number], TAKE ONE TABLET BY MOUTH EVERY NIGHT AT BEDTIME Start Date: 03/17/15 Status: Ordered Glucometer Lancets (DME) DME Item 31 gauge, test blood sugars daily DX:250.00, See Instructions, # 1 Each , 0 Refill(s), Supply Start Date: 09/09/13 Status: Ordered metFORMIN 1000 mg oral tablet See Instructions, TAKE ONE TABLET BY MOUTH TWICE A DAY, # 180 tabs, eRx: [facility] #[id number], TAKE ONE TABLET BY MOUTH TWICE A DAY Start Date: 03/31/15 Status: Ordered Norvasc 2.5 mg oral tablet See Instructions, TAKE ONE TABLET BY MOUTH EVERY DAY, # 90 tabs, 3 Refill(s), eRx: [facility] #[id number], TAKE ONE TABLET BY MOUTH EVERY DAY Start Date: 03/10/15 Status: Ordered pravastatin 20 mg oral tablet See Instructions, TAKE ONE TABLET BY MOUTH EVERY DAY, # 90 tabs, eRx: [facility] #[id number], TAKE ONE TABLET BY MOUTH EVERY DAY Start Date: 03/17/15 Status: Ordered Results No data available for this section Immunizations Vaccine Date Refusal Reason influenza virus vaccine, live 01/11/12 tetanus-diphth toxoids (Td) adult/adol 04/24/02 Procedures Procedure Date Related Diagnosis Body Site Destruction (eg, laser surgery, 06/12/15 electrosurgery, cryosurgery, chemosurgery, surgical curettement), premalignant lesions (eg, actinic keratoses); first lesion Destruction (eg, laser surgery, 06/12/15 electrosurgery, cryosurgery, chemosurgery, surgical curettement), premalignant lesions (eg, actinic keratoses); second through 14 lesions, each (List separately in addition to code for first lesion) Colonoscopy1 07/22/14 Heart Cath2 07/2011 Abnormal Treadmill3 06/2011 Eye Lid Surgeries4 12/25/10 Colonoscopies5 08/26/05 Pacemaker Second Degree Block 2003 Back surgery6 1999 Bilateral Carpal Tunnel Release 1998 Back surgery7 1980 Vasectomy 1973 Appendectomy 195 Adenoidectomy 1936 Tonsillectomy 1936 1Diverticulosis, hyperplastic polyp, likely not need to repeat unless symptoms warrant. 2normal 3apical ischemia 4BLEPH/PTOSIS OU 5WNL,REPEAT 10 YES. 6repeat 7herniated disc from sneezing Social History Social History Type Response Smoking Status Former smoker Assessment and Plan Extracted from: Title: Office Visit Note Author: Tomas Silva Date: 06/12/15 Assessment/Plan Actinic keratosis 14lesions were treated with LN2: scalp x2, right religious x1 , left religious x2, right helix x2, left helix x1, right forearm x2, left forearm x4. Aftercare instructions were given to patient. Possible risks of scarring , infection, blistering, and recurrence were discussed prior to the procedure. Continue photoprotection. Follow up in 6 months, sooner if needed. Ordered: Destruction premalignant lesion 1st 72764 Destruction premalignant lesion 2-14, Each 28479 Office Visit Level 4 Est 22657 Other seborrheic keratosis, Seborrheic keratosis Benign, asymptomatic; reassurance was given. Ordered: Office Visit Level 4 Est 61608 Photoaging of skin Continue to monitor skin for changes and to follow up if any changes are seen. Instructed/reminded patient of proper application and use of sunscreen. Apply SPF 30 or higher with UVA and UVB protection. Skin cancers discussed and handout/information given. Recommend yearly skin evaluations. Ordered: Office Visit Level 4 Est 74698
--- OUTSIDE RECORDS SUMMARY | 2016-08-26 06:56 | XMS REPORT ---
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
--- OUTSIDE RECORDS SUMMARY | 2016-08-26 06:56 | XMS REPORT | Referral Summary ---
Author Author [facility] Organization [facility] Address Unknown Phone Unavailable Care Team Providers Care Calciminer Name Role Phone Wali Broussard Primary Care Physician [phone] Encounter [facility] [id number] Date(s): 02/18/16 - 02/18/16 [facility] [address] [place] [address] Dr Cueva [place] [address]- Discharge Diagnosis: Actinic keratosis Discharge Diagnosis: Changing skin lesion Discharge Disposition: 01-Home or Self Care Attending Physician: Ran Robbins MD Admitting Physician: Ran Robbins MD Referring Physician: Fermín Broussard MD Vital Signs Most recent to 1 oldest [Reference Range]: Temperature Tympanic 36.4 degC [36.6-38.1 degC] *LOW* (02/18/16 1:03 PM) Peripheral Pulse 85 bpm Rate [60-100 bpm] (02/18/16 1:03 PM) Blood Pressure 144/68 mmHg [90-140/60-90 mmHg] *HI* (02/18/16 1:03 PM) SpO2 96 % (02/18/16 1:03 PM) Problem List Condition Effective Dates Status Health [...] E11.9, # 100 Each, 3 Refill(s), Pharmacy: [facility] #[id number], Use to test blood sugar once daily. ; DX E11.9 Start Date: 08/06/15 Status: Ordered Coreg 6.25 mg oral tablet tabs, Oral, BID, Take 1 tablet by oral route BID QD with food., 0 Refill(s) Start Date: 09/09/13 Status: Ordered finasteride 5 mg oral tablet See Instructions, TAKE ONE TABLET BY MOUTH EVERY NIGHT AT BEDTIME, # 90 tabs, 1 Refill(s), Pharmacy: [facility] #[id number], TAKE ONE TABLET BY MOUTH EVERY NIGHT AT BEDTIME Start Date: 12/16/15 Status: Ordered glimepiride 4 mg oral tablet See Instructions, TAKE ONE TABLET BY MOUTH TWICE A DAY, # 180 tabs, eRx: [facility] #[id number], TAKE ONE TABLET BY MOUTH TWICE A DAY Start Date: 02/16/16 Status: Ordered Glucometer Lancets (DME) DME Item 31 gauge, test blood sugars daily DX:250.00, See Instructions, # 1 Each , 0 Refill(s), Supply Start Date: 09/09/13 Status: Ordered metFORMIN 1000 mg oral tablet See Instructions, TAKE ONE TABLET BY MOUTH TWICE A DAY NEED APPOINTMENT IN OCTOBER, # 60 tabs, eRx: [facility] #[id number], TAKE ONE TABLET BY MOUTH TWICE A DAY NEED APPOINTMENT IN OCTOBER Start Date: 01/26/16 Status: Ordered Norvasc 2.5 mg oral tablet See Instructions, TAKE ONE TABLET BY MOUTH EVERY DAY, # 90 tabs, 3 Refill(s), eRx: [facility] #[id number], TAKE ONE TABLET BY MOUTH EVERY DAY Start Date: 03/10/15 Status: Ordered pravastatin 20 mg oral tablet See Instructions, TAKE ONE TABLET BY MOUTH EVERY DAY, # 90 tabs, eRx: [facility] #[id number], TAKE ONE TABLET BY MOUTH EVERY DAY Start Date: 12/13/15 Status: Ordered Results No data available for this section Immunizations Vaccine Date Refusal Reason influenza virus vaccine, live 01/11/12 tetanus-diphth toxoids (Td) adult/adol 04/24/02 Procedures Procedure Date Related Diagnosis Body Site Destruction (eg, laser surgery, 02/18/16 electrosurgery, cryosurgery, chemosurgery, surgical curettement), premalignant lesions (eg, actinic keratoses); first lesion Colonoscopy1 07/22/14 Heart Cath2 07/2011 Abnormal Treadmill3 [...] Extracted from: Title: Office Visit Note Author: Ran Robbins MD Date: 02/18/16 Extracted from: Title: Ambulatory Patient Education Author: Ran Robbins MD Date: 02/18/16 Family Medicine Basal Cell Carcinoma Basal cell carcinoma is the most common form of skin cancer. It begins in the basal cells, which are at the bottom of the outer skin layer (epidermis). CAUSES Sun exposure is the most common cause of basal cell carcinoma. Basal cell carcinoma occurs most often on parts of the body that are frequently exposed to the sun, including the: Scalp. Ears. Neck. Face. Arms. Backs of the hands. Legs. However, basal cell carcinoma can occur anywhere on the body. Rarely, tumors develop on areas not exposed to the sun. Other causes of basal cell carcinoma can include: Exposure to arsenic. Exposure to radiation. Certain genetic syndromes, such as xeroderma pigmentosum. RISK FACTORS People at highest risk for basal cell carcinoma include those with: Fair skin. Blonde or red hair. Blue, green, or bush eyes. Childhood freckling. Factors that increase your risk for basal cell carcinoma include: Sun exposure over long periods of time. Childhood sun exposure appears to be a more significant factor than sun exposure as an adult. Repeated sunburns. Use of tanning beds. Having a weakened immune system. SYMPTOMS Five signs of basal cell carcinoma are: An open sore that bleeds, oozes, or crusts. The sore may remain open for 3 or more weeks. This can be an early sign of basal cell carcinoma. Basal cell carcinoma can mimic a pimple that will not heal. A reddish or irritated area which may crust, itch, or cause discomfort. This may occur on areas expose d to the sun. These patches might be easier felt than seen. A shiny, pearly, or translucent bump that is pink, red, or white. The bump may also be aguilar, black, or brown, especially in dark haired people. These bumps can be confused with moles. A pink growth with a slightly elevated, rolled border, and a crusted indentation in the center. As the growth slowly enlarges, tiny blood vessels may develop on the surface. A scar-like white, yellow, or waxy area that looks like shiny, stretched skin. It often has irregular borders. This may be a sign of more aggressive basal cell carcinoma. DIAGNOSIS Your caregiver may be able to tell what is wrong by doing a physical exam. Often , a tissue sample (biopsy) is also taken. The tissue is examined under a microscope. TREATMENT The treatment for basal cell carcinoma depends on the type, size, location, and number of tumors. Possible treatments include: Mohs surgery. This is a procedure done by a skin doctor (receiving manager or Mohs surgeon) in his or her office. The cancerous cells are removed layer by layer. This treatment has a high cure rate. Surgical removal of the tumor. Freezing the tumor with liquid nitrogen (cryosurgery). Plastic surgery to remove the tumor, in the case of large tumors. Radiation. This may be used for tumors on the face. Photodynamic therapy. A chemical cream is applied to the skin and light exposure is used to activate the chemical. Chemical treatments, such as imiquimod cream and interferon injections. This may be used to remove superficial tumors with minimal scarring. Electrodesiccation and curettage. This involves alternately scraping and burning the tumor, using an electric current to control bleeding. Basal cell carcinoma can almost always be cured. It rarely spreads to other areas of the body (metastasizes). Basal cell carcinoma may come back at the same location (recur), but it can be treated again if this occurs. PREVENTION Avoid the sun between 10:00 a.m. and 4:00 pm when it is the strongest. Use a sunscreen or sunblock with a sun protection factor of 30 or greater. Apply sunscreen at least 30 minutes before exposure to the sun. Reapply sunscreen every 2 to 4 hours while you are outside, after swimming, and after excessive sweating. Always wear protective hats, clothing, and sunglasses with ultraviolet protection. Avoid tanning beds. HOME CARE INSTRUCTIONS Avoid unprotected sun exposure. Follow your caregiver's instructions for self-exams. Look for new spots or changes in your skin. Keep all follow-up appointments as directed by your caregiver. SEEK MEDICAL CARE IF: You notice any new spots or changes in your skin. You have had a basal cell carcinoma tumor removed and you notice a new growth in the same location. This information is not intended to replace advice given to you by your health care provider. Make sure you discuss any questions you have with your health care provider. Document Released: 10/02/2003 Document Revised: 09/26/2012 Document Reviewed: [email or web address] Patient Education 2016 [email or web address] No follow up information was provided.
--- OUTSIDE RECORDS SUMMARY | 2016-08-26 06:57 | XMS REPORT | Referral Summary ---
Author Organization Unknown Address Unknown Phone Unavailable Care Team Providers Care Director Heart Name Role Phone Wali Broussard Primary Care Physician [phone] Encounter Date(s): 07/26/14 - 07/26/14 [facility], Hammad Family [address] [place] [address] Discharge Diagnosis: Enlarged testicle Discharge Diagnosis: Hypertension/High BP Discharge Diagnosis: Diabetes-Type 2 Discharge Diagnosis: Testicular pain Discharge Diagnosis: High Cholesterol Discharge Diagnosis: Encounter for prostate cancer screening Discharge Disposition: Home or Self Care Attending Physician: Fermín Broussard MD Admitting Physician: Fermín Broussard MD Vital Signs Most recent to 1 oldest [Reference Range]: Peripheral Pulse 84 bpm Rate [60-100 bpm] (07/26/14 8:49 AM) Blood Pressure 152/96 mmHg [90-140/60-90 mmHg] *HI* (07/26/14 8:49 AM) Problem List Condition Effective Dates Status [...] Status: Ordered Amaryl 4 mg oral tablet 1 tabs, Oral, BID, # 180 tabs, 2 Refill(s), Pharmacy: [facility] #[id number], 1 tabs Oral BID Start Date: 11/16/13 Status: Ordered aspirin 325 mg, Oral, Daily, 0 Refill(s) Start Date: 09/09/13 Status: Ordered CONTOUR TEST STRIPS See Instructions, TEST BLOOD SUGARS DAILY, # 100 strip, 11 Refill(s), eRx: [facility] #[id number], TEST BLOOD SUGARS DAILY Special Instructions: TEST BLOOD SUGARS DAILY Start Date: 04/16/14 Status: Ordered Coreg 6.25 mg oral tablet tabs, Oral, BID, Take 1 tablet by oral route BID QD with food., 0 Refill(s) Special Instructions: Take 1 tablet by oral route BID QD with food. Start Date: 09/09/13 Status: Ordered finasteride 5 mg oral tablet See Instructions, TAKE ONE TABLET BY MOUTH EVERY NIGHT AT BEDTIME, # 90 tabs, 1 Refill(s), eRx: [facility] #[id number], TAKE ONE TABLET BY MOUTH EVERY NIGHT AT BEDTIME Special Instructions: TAKE ONE TABLET BY MOUTH EVERY NIGHT AT BEDTIME Start Date: 03/18/14 Status: Ordered Glucometer Lancets (DME) DME Item 31 gauge, test blood sugars daily DX:250.00, See Instructions, # 1 Each , 0 Refill(s), Supply Special Instructions: 31 gauge, test blood sugars daily DX:250.00 Start Date: 09/09/13 Status: Ordered metFORMIN 1000 mg oral tablet See Instructions, TAKE ONE TABLET BY MOUTH TWICE A DAY, # 180 tabs, 1 Refill(s) , eRx: [facility] #[id number], TAKE ONE TABLET BY MOUTH TWICE A DAY Special Instructions: TAKE ONE TABLET BY MOUTH TWICE A DAY Start Date: 07/01/14 Status: Ordered Norvasc 2.5 mg oral tablet See Instructions, TAKE ONE TABLET BY MOUTH EVERY DAY, # 90 tabs, eRx: [facility] #[id number], TAKE ONE TABLET BY MOUTH EVERY DAY Special Instructions: TAKE ONE TABLET BY MOUTH EVERY DAY Start Date: 06/10/14 Status: Ordered pravastatin 20 mg oral tablet See Instructions, TAKE ONE TABLET BY MOUTH EVERY DAY, # 90 tabs, eRx: [facility] #[id number], TAKE ONE TABLET BY MOUTH EVERY DAY Special Instructions: TAKE ONE TABLET BY MOUTH EVERY DAY Start Date: 06/10/14 Status: Ordered Results Hematology Most recent to 1 oldest [Reference Range]: WBC [4.8-10.8 K/uL] 5.9 K/uL (07/26/1455 AM) RBC [4.60-6.20 M/uL] 4.52 M/uL *LOW* (07/26/14) Hgb [14.0-18.0 14.0 gm/dL gm/dL] (07/26/1455 AM) Hct [42.0-52.0 %] 42.8 % (07/26/14 AM) MCV [82.0-99.0 fL] 94.7 fL (07/26/1455 AM) MCH [27.0-32.0 pg] 31.0 pg (07/26/14 AM) MCHC [32.0-36.0 32.7 gm/dL gm/dL] (07/26/14:55 AM) RDW [11.5-14.5 %] 14.0 % (07/26/14 AM) Platelet [150-400 253 K/uL K/uL] (07/26/1455 AM) MPV [8.8-14.8 fL] 10.4 fL (07/26/14:55 AM) Immature 0.2 % Granulocytes (07/26/14) [0.0-1.0 %] Neutrophils [51-75 63 % %] (07/26/14:55 AM) Lymphocytes [20-46 25 % %] (07/26/14:55 AM) Monocytes [4-11 %] 10 % (07/26/14:55 AM) Eosinophils [0-4 %] 1 % (07/26/14:55 AM) Basophils [0-2 %] 0 % (07/26/1455 AM) Neutro Absolute 3.75 THOUS [1.90-7.00 THOUS] (07/26/14 9:55 AM) Lymph Absolute 1.49 THOUS [0.80-3.30 THOUS] (07/26/14 9:55 AM) [place] Absolute 0.59 THOUS [0.30-1.00 THOUS] (07/26/14 9:55 AM) Eos Absolute 0.07 THOUS [0.00-0.50 THOUS] (07/26/14 9:55 AM) Baso Absolute 0.01 THOUS [0.00-0.20 THOUS] (07/26/14 9:55 AM) Chemistry Most recent to 1 oldest [Reference Range]: Sodium Lvl [135-144 141 mEq/L mEq/L] (07/26/14:55 AM) Potassium Lvl 4.4 mEq/L [3.5-5.2 mEq/L] (07/26/14 9:55 AM) Chloride [99-111 105 mEq/L mEq/L] (07/26/14:55 AM) CO2 [23-31 mEq/L] 27 mEq/L (07/26/14:55 AM) AGAP [3-20] 9 (07/26/14:55 AM) BUN [8-26 mg/dL] 22 mg/dL (07/26/14:55 AM) Glucose Lvl [70-99 154 mg/dL mg/dL] *HI* (07/26/14:55 AM) Creatinine Lvl 0.90 mg/dL [0.72-1.25 mg/dL] (07/26/14:55 AM) eGFR [>60 mL/min] >60 mL/min 1 (07/26/14:55 AM) Calcium Lvl 9.9 mg/dL [8.9-10.5 mg/dL] (07/26/14:55 AM) Albumin Lvl [3.4-4.8 4.5 gm/dL gm/dL] (07/26/14:55 AM) Total Protein 7.1 gm/dL [6.2-8.1 gm/dL] (07/26/14:55 AM) Globulin [1.8-4.0 2.6 gm/dL gm/dL] (07/26/14 9:55 AM) ALT [0-55 unit/L] 15 unit/L (07/26/14:55 AM) AST [5-34 unit/L] 17 unit/L (07/26/14 9:55 AM) Alk Phos [40-150 44 unit/L unit/L] (07/26/14 9:55 AM) Bili Total [0.2-1.2 0.6 mg/dL mg/dL] (07/26/14 9:55 AM) Chol [0-199 mg/dL] 147 mg/dL (07/26/14 9:55 AM) Trig [0-149 mg/dL] 77 mg/dL (07/26/14 9:55 AM) HDL [40-84 mg/dL] 44 mg/dL (07/26/14 9:55 AM) LDL [0-130 mg/dL] 88 mg/dL (07/26/14 9:55 AM) VLDL Cholesterol 15 mg/dL [0-28 mg/dL] (07/26/14 9:55 AM) Cardiac Risk 3.3 [0.0-5.7] (07/26/14 9:55 AM) Hgb A1c [4.1-5.6 %] 6.8 % *HI* (07/26/14 9:55 AM) eAvg Glucose 148.5 mg/dL (07/26/14 9:55 AM) 1Result Comment: Multiply eGFR results by 1.21 for race. Immunizations Vaccine Date Refusal Reason influenza virus [...] Smoking Status Former smoker Assessment and Plan No data available for this section
--- OUTSIDE RECORDS SUMMARY | 2016-08-26 06:57 | XMS REPORT | Referral Summary ---
Author Author [facility] Organization [facility] Address Unknown Phone Unavailable Care Team Providers Care Tower Observer Name Role Phone Wali Broussard Primary Care Physician [phone] Encounter [facility] Date(s): 04/19/16 - 04/19/16 [facility] [address] [place] [address] [place] [id number]- Discharge Diagnosis: Benign prostatic hypertrophy (BPH) with nocturia Discharge Disposition: 01-Home or Self Care Attending Physician: Blair Ferrara MD Admitting Physician: Blair Ferrara MD Referring Physician: Fermín Broussard MD Vital Signs Most recent to 1 oldest [Reference Range]: Blood Pressure 138/76 mmHg [90-140/60-90 mmHg] (04/19/16 8:24 AM) Problem List Condition Effective Dates Status [...] DAY, # 90 tabs, 2 Refill(s), eRx: [facility] #[id number], TAKE ONE TABLET BY MOUTH EVERY DAY Start Date: 03/08/16 Status: Ordered aspirin 325 mg, Oral, Daily, 0 Refill(s) Start Date: 09/09/13 Status: Ordered Contour Test strips Contour Test strips, See Instructions, Use to test blood sugar once daily. DX E11.9, # 100 Each, 3 Refill(s), Pharmacy: [facility] #[id number], Use to test blood sugar once daily. ; DX E11.9 Start Date: 08/06/15 Status: Ordered Coreg 6.25 mg oral tablet tabs, Oral, BID, Take 1 tablet by oral route BID QD with food., 0 Refill(s) Start Date: 09/09/13 Status: Ordered Efudex 5% topical cream 1 kasey, Topical, BID, apply to face, arms and tops of hands for 2 weeks only, X 14 days, # 40 g, 1 Refill(s), Pharmacy: [facility] #[id number] Start Date: 04/15/16 Stop Date: 05/13/16 Status: Ordered finasteride 5 mg oral tablet See Instructions, TAKE ONE TABLET BY MOUTH EVERY NIGHT AT BEDTIME, # 90 tabs, 1 Refill(s), Pharmacy: [facility] #[id number], TAKE ONE TABLET BY MOUTH EVERY NIGHT AT BEDTIME Start Date: 04/19/16 Status: Ordered glimepiride 4 mg oral tablet See Instructions, TAKE ONE TABLET BY MOUTH TWICE A DAY, # 180 tabs, eRx: [facility] #[id number], TAKE ONE TABLET BY MOUTH TWICE A DAY Start Date: 02/16/16 Status: Ordered Glucometer Lancets (DME) DME Item 31 gauge, test blood sugars daily DX:250.00, See Instructions, # 1 Each , 0 Refill(s), Supply Start Date: 09/09/13 Status: Ordered metFORMIN 1000 mg oral tablet See Instructions, TAKE ONE TABLET BY MOUTH TWICE A DAY, # 60 tabs, 4 Refill(s), eRx: [facility] #[id number], TAKE ONE TABLET BY MOUTH TWICE A DAY Start Date: 02/23/16 Status: Ordered pravastatin 20 mg oral tablet See Instructions, TAKE ONE TABLET BY MOUTH EVERY DAY, # 90 tabs, eRx: [facility] #[id number], TAKE ONE TABLET BY MOUTH EVERY DAY Start Date: 03/11/16 Status: Ordered tamsulosin 0.4 mg oral capsule 0.4 mg 1 caps, Oral, Daily, # 90 caps, 7 Refill(s), Pharmacy: [facility] # [id number], 1 caps Oral Daily,x90 days Start Date: 04/19/16 Stop Date: 04/09/18 Status: Ordered Results No data available for this section Immunizations Given and Recorded Vaccine Date Status Refusal Reason influenza virus vaccine, live 01/11/12 Given tetanus-diphth toxoids (Td) adult/adol 04/24/02 Recorded Procedures Procedure Date Related Diagnosis Body Site Excision of squamous cell carcinoma1 02/18/16 Colonoscopy2 07/22/14 Heart Cath3 07/2011 Abnormal Treadmill4 06/2011 Eye Lid Surgeries5 12/25/10 Colonoscopies6 08/26/05 Pacemaker Second Degree Block 2003 Back surgery1999 Bilateral Carpal Tunnel Release 1998 Back surgery8 1980 Vasectomy 1973 Appendectomy 1952 Adenoidectomy 1936 Tonsillectomy 1936 1Left ear pinna 2Diverticulosis, hyperplastic polyp, likely not need to repeat unless symptoms warrant. 3normal 4apical ischemia 5BLEPH/PTOSIS OU 6WNL,REPEAT 10 YES. 7repeat 8herniated disc from sneezing Social History Social History Type Response Smoking Status Former smoker Assessment and Plan Extracted from: Title: Office Visit Note Author: Blair Ferrara MD Date: 04/19/16 Assessment/Plan Benign prostatic hypertrophy (BPH) with nocturia He can stop the finasteride. I'll start him on tamsulosin for his urinary symptoms. Considering his ageI do not thinkPSA screening is beneficial. I discussed the pros and cons of this. Patient agreeable to not having the PSA checked. He'll follow up with me annually. Discussed the side effects of tamsulosin.
--- OUTSIDE RECORDS SUMMARY | 2016-08-26 06:57 | XMS REPORT | Referral Summary ---
Author Organization Unknown Address Unknown Phone Unavailable Care Team Providers Care Smart Energy Specialist Name Role Phone Wali Broussard Primary Care Physician [phone] Encounter [facility] Date(s): 06/21/14 - 06/21/14 [facility] Mojica, Hammad, [address] [place] [address] Discharge Diagnosis: Change in bowel habits Discharge Diagnosis: Constipation Discharge Disposition: Home or Self Care Attending Physician: Ran Angeles MD Admitting Physician: Ran Angeles MD Referring Physician: Fermín Broussard MD Vital Signs Most recent to 1 oldest [Reference Range]: Temperature Oral 36.2 degC [35.8-37.3 degC] (06/21/14 11:02 AM) Blood Pressure 128/64 mmHg [90-140/60-90 mmHg] (06/21/14 11:02 AM) Problem List Condition Effective Dates Status Health Status Informant hx of acute Active prostatitis, elevated PSA,& 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, pacemaker insertec(Confirmed)1 High Active Cholesterol(Confirme d) Hypertension/High Active BP(Confirmed) Diabetes-Type Active 2(Confirmed) Chicken Active Pox(Confirmed) 1DrRahat Elizabeth is EP doctor Allergies, Adverse Reactions, Alerts Substance Reaction Severity Status Biaxin Active hydrochlorothiazide ITCHING Active lisinopril ITCHING Active Medications Aleve mg, Oral, q8hr, as needed for pain, 0 Refill(s) Start Date: 02/21/14 Status: Ordered Amaryl 4 mg oral tablet 1 tabs, Oral, BID, # 180 tabs, 2 Refill(s), Pharmacy: [facility] #[id number], 1 tabs Oral BID Start Date: 11/16/13 Status: Ordered aspirin 325 mg, Oral, Daily, 0 Refill(s) Start Date: 09/09/13 Status: Ordered CONTOUR TEST STRIPS See Instructions, TEST BLOOD SUGARS DAILY, # 100 strip, 11 Refill(s), eRx: [facility] #[id number], TEST BLOOD SUGARS DAILY Special Instructions: TEST [...] BEDTIME, # 90 tabs, 1 Refill(s), eRx: [facility] #[id number], TAKE ONE TABLET BY MOUTH EVERY NIGHT [...] # 180 tabs, 2 Refill(s) , eRx: [facility] #[id number], TAKE ONE TABLET BY MOUTH TWICE A DAY Special Instructions: TAKE ONE TABLET BY MOUTH TWICE A DAY Start Date: 10/01/13 Status: Ordered Norvasc 2.5 mg oral tablet See Instructions, TAKE ONE TABLET BY MOUTH EVERY DAY, # 90 tabs, eRx: [facility] #[id number], TAKE ONE TABLET BY MOUTH EVERY DAY Special Instructions: TAKE ONE TABLET BY MOUTH EVERY DAY Start Date: 06/10/14 Status: Ordered pravastatin 20 mg oral tablet See Instructions, TAKE ONE TABLET BY MOUTH EVERY DAY, # 90 tabs, eRx: [facility] #[id number], TAKE ONE TABLET BY MOUTH EVERY DAY Special Instructions: TAKE ONE TABLET BY MOUTH EVERY DAY Start Date: 06/10/14 Status: Ordered Results No data available for this section Immunizations Vaccine Date Refusal Reason influenza virus vaccine, live 01/11/12 tetanus-diphth toxoids (Td) adult/adol 04/24/02 Procedures Procedure Date Related Diagnosis Body Site Heart Cath1 07/2011 Abnormal Treadmill2 06/2011 Eye Lid Surgeries3 12/25/10 Colonoscopies4 08/26/05 Pacemaker Second Degree Block 2003 Back surgery5 1999 Bilateral Carpal Tunnel Release 1998 Back surgery6 1980 Vasectomy 1973 Appendectomy 1952 Adenoidectomy 1936 Tonsillectomy 1936 1normal 2apical ischemia 3BLEPH/PTOSIS OU 4WNL,REPEAT 10 YES. 5repeat 6herniated disc from sneezing Social History Social History Type Response Smoking Status Former smoker Assessment and Plan Extracted from: Title: Ambulatory Patient Education Author: Ran Angeles MD Date: Family Medicine Constipation, Adult Constipation is when a person has fewer than 3 bowel movements a week; has difficulty having a bowel movement; or has stools that are dry, hard, or larger than normal. As people grow older, constipation is more common. If you try to fix constipation with medicines that make you have a bowel movement (laxatives ) , the problem may get worse. Long-term laxative use may cause the muscles of the colon to become weak. A low-fiber diet, not taking in enough fluids, and taking certain medicines may make constipation worse. CAUSES Certain medicines, such as antidepressants, pain medicine, iron supplements , antacids, and water pills. Certain diseases, such as diabetes, irritable bowel syndrome (IBS), thyroid disease, or depression. Not drinking enough water. Not eating enough fiber-rich foods. Stress or travel. Lack of physical activity or exercise. Not going to the restroom when there is the urge to have a bowel movement. Ignoring the urge to have a bowel movement. Using laxatives too much. SYMPTOMS Having fewer than 3 bowel movements a week. Straining to have a bowel movement. Having hard, dry, or larger than normal stools. Feeling full or bloated. Pain in the lower abdomen. Not feeling relief after having a bowel movement. DIAGNOSIS Your caregiver will take a medical history and perform a physical exam. Further testing may be done for severe constipation. Some tests may include: A barium enema X-ray to examine your rectum, colon, and sometimes, your small intestine. A sigmoidoscopy to examine your lower colon. A colonoscopy to examine your entire colon. TREATMENT Treatment will depend on the severity of your constipation and what is causing it. Some dietary treatments include drinking more fluids and eating more fiber- rich foods. Lifestyle treatments may include regular exercise. If these diet and lifestyle recommendations do not help, your caregiver may recommend taking whwu-zpb-wulbciy laxative medicines to help you have bowel movements. Prescription medicines may be prescribed if [id number]-[id number] medicines do not work. HOME CARE INSTRUCTIONS Increase dietary fiber in your diet, such as fruits, vegetables, whole grains, and beans. Limit high-fat and processed sugars in your diet, such as [place] fries, hamburgers, cookies, candies, and soda. A fiber supplement may be added to your diet if you cannot get enough fiber from foods. Drink enough fluids to keep your urine clear or pale yellow. Exercise regularly or as directed by your caregiver. Go to the restroom when you have the urge to go. Do not hold it. Only take medicines as directed by your caregiver. Do not take other medicines for constipation without talking to your caregiver first. SEEK IMMEDIATE MEDICAL CARE IF: You have bright red blood in your stool. Your constipation lasts for more than 4 days or gets worse. You have abdominal or rectal pain. You have thin, pencil-like stools. You have unexplained weight loss. MAKE SURE YOU: Understand these instructions. Will watch your condition. Will get help right away if you are not doing well or get worse. Document Released: 12/24/2004 Document Revised: 06/19/2012 Document Reviewed: [facility] Patient Information [address], [facility]. No follow up information was provided.
--- OUTSIDE RECORDS SUMMARY | 2016-08-26 06:57 | XMS REPORT | Referral Summary ---
Author Author [facility] Organization [facility] Address Unknown Phone Unavailable Care Team Providers Care Materials Scheduler Name Role Phone Wali Broussard Primary Care Physician [phone] Encounter [facility] [id number] Date(s): 03/02/16 - 03/02/16 [facility] [address] [place] [address] [place] [address]- Discharge Diagnosis: Visit for suture removal Discharge Disposition: 01-Home or Self Care Attending Physician: Elise Mccullough APRN Admitting Physician: Elise Mccullough APRN Referring Physician: Fermín Broussard MD Vital Signs Most recent to 1 oldest [Reference Range]: Temperature Tympanic 36.2 degC [36.6-38.1 degC] *LOW* (03/02/16 10:41 AM) Problem List Condition Effective Dates Status [...] E11.9, # 100 Each, 3 Refill(s), Pharmacy: [facility] #[id number], Use to test blood sugar once daily. ; DX E11.9 Start Date: 08/06/15 Status: Ordered Coreg 6.25 mg oral tablet tabs, Oral, BID, Take 1 tablet by oral route BID QD with food., 0 Refill(s) Start Date: 09/09/13 Status: Ordered finasteride 5 mg oral tablet See Instructions, TAKE ONE TABLET BY MOUTH EVERY NIGHT AT BEDTIME, # 90 tabs, 1 Refill(s), Pharmacy: [facility] #[id number], TAKE ONE TABLET BY MOUTH EVERY NIGHT AT BEDTIME Start Date: 12/16/15 Status: Ordered glimepiride 4 mg oral tablet See Instructions, TAKE ONE TABLET BY MOUTH TWICE A DAY, # 180 tabs, eRx: [facility] #[id number], TAKE ONE TABLET BY MOUTH TWICE A DAY Start Date: 02/16/16 Status: Ordered Glucometer Lancets (DME) DME Item 31 gauge, test blood sugars daily DX:250.00, See Instructions, # 1 Each , 0 Refill(s), Supply Start Date: 09/09/13 Status: Ordered metFORMIN 1000 mg oral tablet See Instructions, TAKE ONE TABLET BY MOUTH TWICE A DAY, # 60 tabs, 4 Refill(s), eRx: [facility] #[id number], TAKE ONE TABLET BY MOUTH TWICE A DAY Start Date: 02/23/16 Status: Ordered Norvasc 2.5 mg oral tablet See Instructions, TAKE ONE TABLET BY MOUTH EVERY DAY, # 90 tabs, 3 Refill(s), eRx: [facility] #[id number], TAKE ONE TABLET BY MOUTH EVERY DAY Start Date: 03/10/15 Status: Ordered pravastatin 20 mg oral tablet See Instructions, TAKE ONE TABLET BY MOUTH EVERY DAY, # 90 tabs, eRx: [facility] #[id number], TAKE ONE TABLET BY MOUTH EVERY DAY [...] Bilateral Carpal Tunnel Release 1998 Back surgery8 1979 Vasectomy 1973 Appendectomy 1952 Adenoidectomy 1936 Tonsillectomy 1936 1Left ear pinna 2Diverticulosis, hyperplastic polyp, likely not need to repeat unless symptoms warrant. 3normal 4apical ischemia 5BLEPH/PTOSIS OU 6WNL,REPEAT 10 YES. 7repeat 8herniated disc from sneezing Social History Social History Type Response Smoking Status Former smoker Assessment and Plan Extracted from: Title: Office Visit Note Author: Elise Mccullough APRN Date: 03/02/16
--- OUTSIDE RECORDS SUMMARY | 2016-08-26 06:57 | XMS REPORT | Continuity of Care Document ---
Author Author [facility] Organization [facility] Address Unknown Phone Unavailable Allergies Active Description Code Type Severity Reaction Onset Reported/Identified Relationship to Patient Clinical Status Yes hydrochlorothiazide NKMA N/A ITCHING 08/07/2013 Yes lisinopril NKMA N/A ITCHING 08/07/2013 Yes Biaxin NKMA N/A N/A 02/21/2014 Medications Problems Procedures Results Test Result Range CBC - 11/16/11 13:00 MEAN CELL HGB 33.2 pg 27.0-33.0 MEAN CELL HGB CONCENTRATION 33.9 g/dl 32.0-36.0 MEAN CELL VOLUME 98.0 fl 80.0-100.0 RED BLOOD CELL 4.13 m/cumm 4.00-6.00 RED CELL DISTRIBUTION WIDTH 13.6 % 11.0- 15.6 WHITE BLOOD CELL 6.4 k/cumm 5.0-10.0 HEMOGLOBIN 13.7 gm/dL 14.0-18.0 HEMATOCRIT 40.4 % 40.0-54.0 PLATELET COUNT 221 k/cumm 150-450 METABOLIC PANEL, BASIC - 11/16/11 13:00 POTASSIUM 3.9 mmol/L 3.5-5.3 EST GFR (MDRD) > 60 mL/min > 59 ANION GAP 7 mmol/L 5-15 EST CrCl (CG) > 60 mL/min > 59 GLUCOSE 117 mg/dL 70-99 CALCIUM 8.8 mg/dL 8.5-10.1 BLOOD UREA NITROGEN 26 mg/dL 7-20 CREATININE 1.0 mg/dL 0.8-1.3 SODIUM 140 mmol/L 135-148 CHLORIDE 107 mmol/L 98-110 CARBON DIOXIDE 26 mmol/L 21-32 GLUCOSE (POC) - 11/16/11 20:33 GLUCOSE (POC) 204 mg/dL 70-99 GLUCOSE (POC) - 11/17/11 05:50 GLUCOSE (POC) 126 mg/dL 70-99 CBC With Platelet and Differential - 07/09/16 11:05 Absolute Basophils 0.01 10*3/uL 0.00- 0.20 Absolute Eosinophils 0.23 10*3/uL 0.00- 0.50 Absolute Lymphocytes 1.47 10*3/uL 0.80- 3.30 Absolute Monocytes 0.61 10*3/uL 0.30- 1.00 Absolute Neutrophils 4.78 10*3/uL 1.90- 7.00 Basophils 0 % 0-2 Eosinophils 3 % 0-4 HCT 43.1 % 42.0-52.0 HGB 14.1 g/dL 14.0-18.0 Immature Granulocytes 0.3 % 0.0-1.0 Lymphocytes 21 % 20-46 MCH 31.7 pg 27.0-32.0 MCHC 32.7 g/dL 32.0-36.0 MCV 96.9 fL 82.0-99.0 Monocytes 9 % 4-11 MPV 10.2 fL 8.8-14.8 Neutrophils 67 % 51-75 Platelet Count 266 K/uL 150-400 RBC 4.45 10*6/uL 4.60-6.20 RDW 12.5 % 11.5-14.5 WBC 7.1 K/uL 4.8-10.8 Basic Metabolic Panel (BMP) - 07/09/16 11:05 Anion Gap 8 NA 3-20 BUN 23 mg/dL 8-26 Calcium 9.3 mg/dL 8.4-10.2 Chloride 103 mEq/L 99-111 CO2 26 mEq/L 23-31 Creatinine 0.99 mg/dL 0.72-1.25 Glucose 115 mg/dL 70-99 Potassium 4.5 mEq/L 3.5-5.2 Sodium 137 mEq/L 135-144 eGFR - 07/09/16 11:05 eGFR >60 mL/min >60 TSH with Reflex Free T4 - 07/09/16 11:05 TSH with Reflex Free T4 2.70 uIU/mL 0.35- 4.94 Hemoglobin A1C - 07/09/16 11:05 Hemoglobin A1C 7.0 % 4.1-5.6 Estimated Average Glucose - 07/09/16 11:05 Estimated Average Glucose 154.2 mg/dL Encounters ACCT No. Visit Date/Time Discharge Status Pt. Type Provider Facility Loc./Unit Complaint [id number] 11/16/2011 12:15:00 2011 15:00:00 DIS Outpatient Clara GU, Seymour Fuentes [facility]
--- OUTSIDE RECORDS SUMMARY | 2016-08-26 06:57 | XMS REPORT | Referral Summary ---
Author Organization Unknown Address Unknown Phone Unavailable Care Team Providers Care Public Relations Assistant Name Role Phone Wali Broussard Primary Care Physician [phone] Encounter [facility] [id number] Date(s): 05/02/14 - 05/02/14 [facility] Mojica, Hammad, Family [address] [place] [address] Discharge Diagnosis: Constipation Discharge Disposition: Home or Self Care Attending Physician: Fermín Broussard MD Admitting Physician: Fermín Broussard MD Vital Signs Most recent to 1 oldest [Reference Range]: Blood Pressure 126/64 mmHg [90-140/60-90 mmHg] (05/02/14 1:27 PM) Problem List No data available for this section Allergies, Adverse Reactions, Alerts Substance Reaction Severity Status Biaxin Active hydrochlorothiazide ITCHING Active lisinopril ITCHING Active Medications Aleve mg, Oral, q8hr, as needed for pain, 0 Refill(s) Start Date: 02/21/14 Status: Ordered Amaryl 4 mg oral tablet 1 tabs, Oral, BID, # 180 tabs, 2 Refill(s), Pharmacy: [facility] #[id number], 1 tabs Oral BID Start Date: 11/16/13 Status: Ordered aspirin 325 mg, Oral, Daily, 0 Refill(s) Start Date: 09/09/13 Status: Ordered CONTOUR TEST STRIPS See Instructions, TEST BLOOD SUGARS DAILY, # 100 strip, 11 Refill(s), [id number], TEST BLOOD SUGARS DAILY Special Instructions: TEST [...] BEDTIME, # 90 tabs, 1 Refill(s), eRx: [facility] #[id number], TAKE ONE TABLET BY MOUTH EVERY NIGHT [...] # 180 tabs, 2 Refill(s) , eRx: [facility] #[id number], TAKE ONE TABLET BY MOUTH TWICE A DAY Special Instructions: TAKE ONE TABLET BY MOUTH TWICE A DAY Start Date: 10/01/13 Status: Ordered Norvasc 2.5 mg oral tablet See Instructions, TAKE ONE TABLET BY MOUTH EVERY DAY, # 90 tabs, eRx: [facility] #[id number], TAKE ONE TABLET BY MOUTH EVERY DAY Special Instructions: TAKE ONE TABLET BY MOUTH EVERY DAY Start Date: 03/25/14 Status: Ordered pravastatin 20 mg oral tablet See Instructions, TAKE ONE TABLET BY MOUTH EVERY DAY, # 90 tabs, eRx: [facility] #[id number], TAKE ONE TABLET BY MOUTH EVERY DAY Special Instructions: TAKE ONE TABLET BY MOUTH EVERY DAY Start Date: 03/11/14 Status: Ordered Results No data available for this section Immunizations Vaccine Date Refusal Reason influenza virus vaccine, live 01/11/12 Procedures No data available for this section Social History Social History Type Response Smoking Status Former smoker Assessment and Plan No data available for this section
--- OUTSIDE RECORDS SUMMARY | 2016-08-26 06:57 | XMS REPORT ---
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 Active Problem Atrial Tachycardia 427.89 Active Problem Aortic stenosis 424.1 Active Problem Complete Heart Block 426.0 Active Problem 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 Problem Hypertension 401.9 Active 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 Hypertension 401.9 Active Assessment Dyslipidemia 272.4 Active Assessment 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 Assessment Aortic stenosis 424.1 Active Assessment Atrial Tachycardia 427.89 Active Medications Medication Code System Code Instructions Start Date End Date Status Dosage Aspirin [facility] [address] 325mg Orally qd 1 tab Carvedilol [facility] [address]-68 6.25 MG Orally bid July 16, 2011 1 tab Finasteride [facility] [address]-67 5 MG Orally qd 1 tab Pravastatin Sodium [facility] [address]-63 20 MG Orally qd 1 tablet Glimepiride [facility] [address]-71 4 MG Orally bid 1 tablet with breakfast or the first main meal of the day Amlodipine Besylate [facility] [address]-38 2.5 MG Orally qd 1 tab Metformin HCl [facility] [address]-56 1000 MG Orally bid 1 tab Procedures Procedure Coding System Code Date Ofc Program PM Dual, Staff CPT-4 78302 August 28, 2014 Office Visit, Est Pt., Level 3 CPT-4 38483 August 28, 2014 Vital Signs Date/Time: August 28, 2014 BMI 31.66 Index Weight 227. lbs Height 71 in Cardiac Monitoring Heart Rate 78 /min Oximetry 95% % Blood Pressure Diastolic 70 mm Hg Blood Pressure Systolic 138 mm Hg Results No Known Results Summary Purpose eClinicalWorks Submission
--- OUTSIDE RECORDS SUMMARY | 2016-08-26 06:57 | XMS REPORT | Referral Summary ---
Author Author [facility] Organization [facility] Address Unknown Phone Unavailable Care Team Providers Care Electronics Parts Sales Representative Name Role Phone Wali Broussard Primary Care Physician [phone] Encounter [facility] [id number] Date(s): 11/11/15 - 11/11/15 [facility] Surgery [address] [place] [address] Dr [place] [address]- Discharge Diagnosis: Actinic keratosis Discharge Diagnosis: Seborrheic keratosis Discharge Disposition: 01-Home or Self Care Attending Physician: Ran Robbins MD Admitting Physician: Ran Robbins MD Vital Signs Most recent to 1 oldest [Reference Range]: Temperature Tympanic 36.7 degC [36.6-38.1 degC] (11/11/15 2:14 PM) Peripheral Pulse 76 bpm Rate [60-100 bpm] (11/11/15 2:14 PM) Blood Pressure 140/72 mmHg [90-140/60-90 mmHg] (11/11/15 2:14 PM) Problem List Condition Effective Dates Status [...] # 180 tabs, 1 Refill(s) , eRx: [facility] #[id number], TAKE ONE TABLET BY MOUTH TWICE A DAY Start Date: 05/19/15 Status: Ordered aspirin 325 mg, Oral, Daily, 0 Refill(s) Start Date: 09/09/13 Status: Ordered Contour Test strips Contour Test strips, See Instructions, Use to test blood sugar once daily. DX E11.9, # 100 Each, 3 Refill(s), Pharmacy: [facility] #[id number], Use to test blood sugar once daily. ; DX E11.9 Start Date: 08/06/15 Status: Ordered Coreg 6.25 mg oral tablet tabs, Oral, BID, Take 1 tablet by oral route BID QD with food., 0 Refill(s) Start Date: 09/09/13 Status: Ordered finasteride 5 mg oral tablet See Instructions, TAKE ONE TABLET BY MOUTH EVERY NIGHT AT BEDTIME, # 90 tabs, eRx: [facility] #[id number], TAKE ONE TABLET BY MOUTH EVERY NIGHT AT BEDTIME Start Date: 09/15/15 Status: Ordered Glucometer Lancets (DME) DME Item 31 gauge, test blood sugars daily DX:250.00, See Instructions, # 1 Each , 0 Refill(s), Supply Start Date: 09/09/13 Status: Ordered metFORMIN 1000 mg oral tablet See Instructions, TAKE ONE TABLET BY MOUTH TWICE A DAY NEED APPOINTMENT IN OCTOBER, # 60 tabs, eRx: [facility] #[id number], TAKE ONE TABLET BY MOUTH TWICE A DAY NEED APPOINTMENT IN OCTOBER Start Date: 10/20/15 Status: Ordered Norvasc 2.5 mg oral tablet See Instructions, TAKE ONE TABLET BY MOUTH EVERY DAY, # 90 tabs, 3 Refill(s), eRx: [facility] #[id number], TAKE ONE TABLET BY MOUTH EVERY DAY Start Date: 03/10/15 Status: Ordered pravastatin 20 mg oral tablet See Instructions, TAKE ONE TABLET BY MOUTH EVERY DAY, # 90 tabs, eRx: [facility] #[id number], TAKE ONE TABLET BY MOUTH EVERY DAY Start Date: 09/15/15 Status: Ordered Results No data available for this section Immunizations Vaccine Date Refusal Reason influenza virus vaccine, live 01/11/12 tetanus-diphth toxoids (Td) adult/adol 04/24/02 Procedures Procedure Date Related Diagnosis Body Site Destruction (eg, laser surgery, 11/11/15 electrosurgery, cryosurgery, chemosurgery, surgical curettement), premalignant lesions (eg, actinic keratoses); first lesion Destruction (eg, laser surgery, 11/11/15 electrosurgery, cryosurgery, chemosurgery, surgical curettement), premalignant lesions [...] Patient Education Author: Ran Robbins MD Date: 11/10 Family Medicine Actinic Keratosis Actinic keratosis is a precancerous growth on the skin. This means it could develop into skin cancer if it is not treated. About 1% of actinic keratoses turn into skin cancer within a year. It is important to have all such growths removed to prevent them from developing into skin cancer. CAUSES Actinic keratosis is caused by getting too much ultraviolet (UV) radiation from the sun or other UV light sources. RISK FACTORS Factors that increase your chances of getting actinic keratosis include: Having light-colored skin and blue eyes. Having blonde or red hair. Spending a lot of time in the sun. Age. The risk of actinic keratosis increases with age. SYMPTOMS Actinic keratosis growths look like scaly, rough spots of skin. They can be as small as a pinhead or as big as a quarter. They may itch, hurt, or feel sensitive. Sometimes there is a little tag of pink or bush skin growing off them. In some cases, actinic keratoses are easier felt than seen. They do not go away with the use of moisturizing lotions or creams. Actinic keratoses appear most often on areas of skin that get a lot of sun exposure. These areas include the: Scalp. Face. Ears. Lips. Upper back. Backs of the hands. Forearms. DIAGNOSIS Your health care provider can usually tell what is wrong by performing a physical exam. A tissue sample (biopsy) may also be taken and examined under a microscope. TREATMENT Actinic keratosis can be treated several ways. Most treatments can be done in your health care provider's office. Treatment options may include: Curettage. A tool is used to gently scrape off the growth. Cryosurgery. Liquid nitrogen is applied to the growth to freeze it. The growth eventually falls off the skin. Medicated creams, such as 5-fluorouracil or imiquimod. The medicine destroys the cells in the growth. Chemical peels. Chemicals are applied to the growth and the outer layers of skin are peeled off. Photodynamic therapy. A drug that makes your skin more sensitive to light is applied to the skin. A strong, blue light is aimed at the skin and destroys the growth. PREVENTION To prevent future sun damage: Try to avoid the sun between 10:00 a.m. and 4:00 p.m. when it is the strongest. Use a sunscreen or sunblock with SPF 30 or greater. Apply sunscreen at least 30 minutes before exposure to the sun. Always wear protective hats, clothing, and sunglasses with UV protection. Avoid medicines, herbs, and foods that increase your sensitivity to sunlight. Avoid tanning beds. HOME CARE INSTRUCTIONS If your skin was covered with a bandage, change and remove the bandage as directed by your health care provider. Keep the treated area dry as directed by your health care provider. Apply any creams as prescribed by your health care provider. Follow the directions carefully. Check your skin regularly for any changes. Visit a skin doctor (machine sand mixer) every year for a skin exam. SEEK MEDICAL CARE IF: Your skin does not heal and becomes irritated, red, or bleeds. You notice any changes or new growths on your skin. This information is not intended to replace advice given to you by your health care provider. Make sure you discuss any questions you have with your health care provider. Document Released: 06/24/2009 Document Revised: 04/18/2015 Document Reviewed: [facility] Patient Information 2016 [employer]. Seborrheic Keratosis Seborrheic keratosis is a common, noncancerous (benign) skin growth that can occur anywhere on the skin.It looks like "stuck-on," waxy, rough, aguilar, brown, or black spots on the skin. These skin growths can be flat or raised.They are often called "barnacles" because of their pasted-on appearance.Usually, these skin growths appear in adulthood, around age 30, and increase in number as you age. They may also develop during or following estrogen therapy. Many people may only have one growth appear in their lifetime, while some people may develop many growths. CAUSES It is unknown what causes these skin growths, but they appear to run in families. SYMPTOMS Seborrheic keratosis is often located on the face, chest, shoulders, back, or other areas. These growths are: Usually painless, but may become irritated and itchy. Yellow, brown, black, or other colors. Slightly raised or have a flat surface. Sometimes rough or wart-like in texture. Often waxy on the surface. Round or oval-shaped. Sometimes "stuck-on" in appearance. Sometimes single, but there are usually many growths. Any growth that bleeds, itches on a regular basis, becomes inflamed, or becomes irritated needs to be evaluated by a contract specialist (machine sand mixer). DIAGNOSIS Diagnosis is mainly based on the way the growths appear. In some cases, it can be difficult to tell this type of skin growth from skin cancer. A skin growth tissue sample (biopsy) may be used to confirm the diagnosis. TREATMENT Most often, treatment is not needed because the skin growths are benign.If the skin growth is irritated easily by clothing or jewelry, causing it to scab or bleed, treatment may be recommended. Patients may also choose to have the growths removed because they do not like their appearance. Most commonly, these growths are treated with cryosurgery. In cryosurgery, liquid nitrogen is applied to "freeze" the growth. The growth usually falls off within a matter of days. A blister may form and dry into a scab that will also fall off. After the growth or scab falls off, it may leave a dark or light spot on the skin. This color may fade over time, or it may remain permanent on the skin. HOME CARE INSTRUCTIONS If the skin growths are treated with cryosurgery, the treated area needs to be kept clean with water and soap. SEEK MEDICAL CARE IF: You have questions about these growths or other skin problems. You develop new symptoms, including: A change in the appearance of the skin growth. New growths. Any bleeding, itching, or pain in the growths. A skin growth that looks similar to seborrheic keratosis. This information is not intended to replace advice given to you by your health care provider. Make sure you discuss any questions you have with your health care provider. Document Released: 04/30/2011 Document Revised: 06/19/2012 Document Reviewed: [facility] Patient Information 2016 Access Mobile. Actinic Keratosis Actinic keratosis is a precancerous growth on the skin. This means it could develop into skin cancer if it is not treated. About 1% of actinic keratoses turn into skin cancer within a year. It is important to have all such growths removed to prevent them from developing into skin cancer. CAUSES Actinic keratosis is caused by getting too much ultraviolet (UV) radiation from the sun or other UV light sources. RISK FACTORS Factors that increase your chances of getting actinic keratosis include: Having light-colored skin and blue eyes. Having blonde or red hair. Spending a lot of time in the sun. Age. The risk of actinic keratosis increases with age. SYMPTOMS Actinic keratosis growths look like scaly, rough spots of skin. They can be as small as a pinhead or as big as a quarter. They may itch, hurt, or feel sensitive. Sometimes there is a little tag of pink or bush skin growing off them. In some cases, actinic keratoses are easier felt than seen. They do not go away with the use of moisturizing lotions or creams. Actinic keratoses appear most often on areas of skin that get a lot of sun exposure. These areas include the: Scalp. Face. Ears. Lips. Upper back. Backs of the hands. Forearms. DIAGNOSIS Your health care provider can usually tell what is wrong by performing a physical exam. A tissue sample (biopsy) may also be taken and examined under a microscope. TREATMENT Actinic keratosis can be treated several ways. Most treatments can be done in your health care provider's office. Treatment options may include: Curettage. A tool is used to gently scrape off the growth. Cryosurgery. Liquid nitrogen is applied to the growth to freeze it. The growth eventually falls off the skin. Medicated creams, such as 5-fluorouracil or imiquimod. The medicine destroys the cells in the growth. Chemical peels. Chemicals are applied to the growth and the outer layers of skin are peeled off. Photodynamic therapy. A drug that makes your skin more sensitive to light is applied to the skin. A strong, blue light is aimed at the skin and destroys the growth. PREVENTION To prevent future sun damage: Try to avoid the sun between 10:00 a.m. and 4:00 p.m. when it is the strongest. Use a sunscreen or sunblock with SPF 30 or greater. Apply sunscreen at least 30 minutes before exposure to the sun. Always wear protective hats, clothing, and sunglasses with UV protection. Avoid medicines, herbs, and foods that increase your sensitivity to sunlight. Avoid tanning beds. HOME CARE INSTRUCTIONS If your skin was covered with a bandage, change and remove the bandage as directed by your health care provider. Keep the treated area dry as directed by your health care provider. Apply any creams as prescribed by your health care provider. Follow the directions carefully. Check your skin regularly for any changes. Visit a skin doctor (machine sand mixer) every year for a skin exam. SEEK MEDICAL CARE IF: Your skin does not heal and becomes irritated, red, or bleeds. You notice any changes or new growths on your skin. This information is not intended to replace advice given to you by your health care provider. Make sure you discuss any questions you have with your health care provider. Document Released: 06/24/2009 Document Revised: 04/18/2015 Document Reviewed: [employer] Patient Information 2016 [employer] [facility]. No follow up information was provided.
--- OUTSIDE RECORDS SUMMARY | 2016-08-26 06:57 | XMS REPORT | Referral Summary ---
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 Discharge Diagnosis: Family history of prostate cancer Discharge Disposition: 01-Home or Self Care Attending Physician: Fili Manuel JR, MD Admitting Physician: Fili Manuel JR, MD Referring Physician: Fermín Broussard MD Vital Signs Most recent to 1 oldest [Reference Range]: Peripheral Pulse 88 bpm Rate [60-100 bpm] (02/20/15 9:11 AM) Blood Pressure 146/72 mmHg [90-140/60-90 mmHg] *HI* (02/20/15 9:11 AM) Problem List Condition Effective Dates Status [...] # 180 tabs, 2 Refill(s) , eRx: [facility] #[id number], TAKE ONE TABLET BY MOUTH TWICE A DAY Start Date: 08/26/14 Status: Ordered aspirin 325 mg, Oral, Daily, 0 Refill(s) Start Date: 09/09/13 Status: Ordered CONTOUR TEST STRIPS See Instructions, TEST BLOOD SUGARS DAILY, # 100 strip, 11 Refill(s), eRx: [facility] #[id number], TEST BLOOD SUGARS DAILY Start Date: 04/16/14 Status: Ordered Coreg 6.25 mg oral tablet tabs, Oral, BID, Take 1 tablet by oral route BID QD with food., 0 Refill(s) Start Date: 09/09/13 Status: Ordered finasteride 5 mg oral tablet See Instructions, TAKE ONE TABLET BY MOUTH EVERY NIGHT AT BEDTIME, # 90 tabs, 1 Refill(s), eRx: [facility] #[id number], TAKE ONE TABLET BY MOUTH EVERY NIGHT AT BEDTIME Start Date: 09/16/14 Status: Ordered Glucometer Lancets (DME) DME Item 31 gauge, test blood sugars daily DX:250.00, See Instructions, # 1 Each , 0 Refill(s), Supply Start Date: 09/09/13 Status: Ordered metFORMIN 1000 mg oral tablet See Instructions, TAKE ONE TABLET BY MOUTH TWICE A DAY, # 180 tabs, eRx: [facility] #[id number], TAKE ONE TABLET BY MOUTH TWICE A DAY Start Date: 12/23/14 Status: Ordered Norvasc 2.5 mg oral tablet See Instructions, TAKE ONE TABLET BY MOUTH EVERY DAY, # 90 tabs, 1 Refill(s), eRx: [facility] #[id number], TAKE ONE TABLET BY MOUTH EVERY DAY Start Date: 09/09/14 Status: Ordered pravastatin 20 mg oral tablet See Instructions, TAKE ONE TABLET BY MOUTH EVERY DAY, # 90 tabs, 1 Refill(s), eRx: [facility] #[id number], TAKE ONE TABLET BY MOUTH EVERY DAY Start Date: 09/16/14 Status: Ordered Results Chemistry Most recent to 1 oldest [Reference Range]: PSA (wihout Reflex 0.1 ng/mL 1 Free) [0.0-6.5 (02/20/15 9:05 AM) ng/mL] 1Result Comment: [facility] PSA Best Practice Guidelines: Age-Adjusted PSA Values by Ethnic Group Age Range Asians - Caucasians Americans 40-49 0-2.0 0-2.0 0-2.5 50-59 0-3.0 0-4.0 0-3.5 60-69 0-4.0 0-4.5 0-4.5 70-79 0-5.0 0-5.5 0-6.5 Immunizations Vaccine Date Refusal Reason influenza virus [...] Extracted from: Title: Ambulatory Patient Education Author: Fili Manuel JR, MD Date : 02/20/15 Follow Up With: Where: When: Fermín Broussard [address] [place] [address] Drive; [place] [address] [employer] [facility] [employer] Within 3 to 5 days Comments: Follow Up With: Where: When: Fili Garza[address]; [address] [place] [phone] [employer] [facility] Within 3 to 5 days Comments: Extracted from: Title: Office Visit Note Author: Fili Manuel JR, MD Date: 02/20/15 Assessment/Plan 1.Family history of prostate cancer, Family history of prostate cancer continue finasteride 5 mg once a day.recheck in one year or sooner if needed. Continue metformin for his type II diabetes mellitus including the Nipride. Continue amlodipine for his hypertension. Continue pravastatin for his hypercholesterolemia. Continue carvedilol for his atherosclerotic heart disease Ordered: Office Visit Level 3 Est [address]16 2.BPH without obstruction/lower urinary tract symptoms Screening PSA (prostate specific antigen) Ordered: Prostate Specific Antigen
[2016-08-26] MEDS ORDERED: LR 1,000 ML IV SCH (07:00)
[2016-08-26] MEDS ORDERED: LIDOCAINE 1% (10mg/ml) 2ml SDV INJ ONE (07:00)
[2016-08-26 07:07] VITALS: BP 161/77; PULSE 87; RESP 16; TEMP 97.9; O2SAT 95; Ht 185.4 cm; Wt 100.5 kg
--- NOTE | 2016-08-26 07:44 | ANESPREOP ---
Anesthesia Record Date and Time DATE: 08/26/16 TIME: 07:40 Proposed Surgical Procedure EGD W/ DIL Allergies: Coded Allergies: hydrochlorothiazide (Verified Allergy, Mild, ITCHING, 07/19/14) lisinopril (Verified Allergy, Mild, ITCHING, 07/19/14) clarithromycin (Unverified Adverse Reaction, Unknown, DIARRHEA, 06/03/11) Ht/Wt/BMI Height: 6 ' 1.00 " Weight: 100.500 kg BMI: 29.2 kg/m2 Vital Signs Date Time Temp Pulse Resp B/P Pulse Ox O2 Delivery O2 Flow Rate FiO2 08/26/16 07:07 97.9 87 16 161/77 95 Room Air Medications Inpatient Medications Current Medications Medications (Trade) Dose Ordered Sig/Ruthie Start Time Stop Time Status Last Admin Dose Admin Lactated Ringer's (Lactated Ringers) 1,000 ml @ 30 mls/hr Q24H 08/26/16 07:00 08/26/16 07:31 30 MLS/HR Amlodipine Besylate (Norvasc) 2.5 Mg Tablet, 2.5 MG PO DAILY, (Reported) Last Taken: on 08/26/16 0600 Aspirin (Aspirin) 325 Mg Tablet, 325 MG PO DAILY, (Reported) Last Taken: on 08/19/16 Carvedilol (Coreg) 6.25 Mg Tablet, 1 TAB PO BID, ( Reported) Last Taken: on 08/26/16 0600 Finasteride (Finasteride) 5 Mg Tablet, 5 MG PO DAILY, (Reported) Last Taken: on 08/25/16 190 Glimepiride (Glimepiride) 4 Mg Tablet, 1 TAB PO BID, (Reported) Last Taken: on 08/25/16 190 Metformin Hcl (Metformin Hcl) 1,000 Mg Tablet, 1,000 MG PO BID, (Reported) Last Taken: on 08/25/16 190 Naproxen Sodium (Aleve) 220 Mg Capsule, 220 MG PO Q8H PRN for PAIN, (Reported) Last Taken: on 08/05/16 Pravastatin Sodium (Pravastatin Sodium) 20 Mg Tablet, 20 MG PO DAILY, (Reported) Last Taken: on 08/25/16 190 Currently on Beta Richard: Yes Medical/Surgical History Anesthesia PMH: Reports: *Diabetes (NIDDM), *Hypertension (ON MEDS), *VT ( PACEMAKER PLACED 2012), Arthritis (FINGERS,BACK,SHOULDERS,KNEES), Cancer (SKIN CA), Hiatal Hernia (UNSURE), Denies: *Angina, Anesthesia Reactions (NO AIRWAY ISSUES), Blood Transfusion Reac, CHF, Clotting Problems, Deep Vein Thrombosis, Glaucoma, Hepatitis, Malignant Hyperthermia, Reflux, Renal Disease, Thyroid Disease Smoking Status: Never smoker Has pt. smoked today?: No Use Chewing Tobacco?: No Second Hand Exposure: No Substance Use Type: does not use Alcohol Intake: none Past Surgical History Orthopedic Surgeries: Yes - CTR 1998 LT & RT,LUMBAR SURGERY X2 Abdominal Surgeries: Yes - APPY 1952 Genitourinary Surgeries: No Cardiac Surgeries: Yes - PACEMAKER AND HEART CATH 2011 Endocrine Surgeries: No Reproductive Surgeries: Yes - VASECTOMY 1972 Neurological Surgeries: No Ear Surgeries: No Nose Surgeries: No Throat Surgeries: Yes - T&A 1936 Other Surgeries: Yes - COLONOSCOPY Anesthesia Adverse Reactions: FOUND none Family Hx of Anesthesia Advers: none Hx of Motion Sickness: No Pertinent Findings EKG Rhythm: Paced Physical Exam Respiratory: Lungs clear Cardiovascular: FOUND Pacemaker Airway Assessment Mallampati Score: II TMD: 3 Fingerbreadths Neck Extension: Good Overall Assessment: No Airway Concerns ASA: 2 Plan Anesthesia Plan: TIVA Discussion Discussed risks/options/alternatives of anesthesia and questions answered. Patient consents. Nursing pain assessment noted. Attestation Statement Prior to the delivery of any anesthetic medication, I examined the patient, developed the plan, obtained the patient's consent and discussed the risk and benefits of the procedure with the patient/guardian. SHIRLEY ARGUETA August 26, 2016 07:43
[2016-08-26] MEDS ORDERED: PROPOFOL 500mg 50 ML IV ONE (08:47)
[2016-08-26] MEDS ORDERED: LIDOCAINE 2% (20mg/ml) 5ml PF SDV ONE (08:47)
[2016-08-26] MEDS ORDERED: LIDOCAINE VISCOUS 2% Oral Soln 15ml UD ONE (08:50)
[2016-08-26 09:04] VITALS: BP 134/60; PULSE 79; RESP 12; TEMP 96.9; O2SAT 94
[2016-08-26 09:19] VITALS: BP 159/71; PULSE 72; RESP 14; O2SAT 94
[2016-08-26 09:34] VITALS: BP_SYST 134; BP_SYST 167; BP_DIAS 60; BP_DIAS 76; PULSE 72; PULSE 79; RESP 12; RESP 16; TEMP 96.9; O2SAT 94; O2SAT 98
--- NOTE | 2016-08-26 09:36 | ANESPO ---
Post-Op Note Date 08/26/16 Time: 09:36 Status Pt Participated in Evaluation: Pt participated in person Vital Signs Date Time Temp Pulse Resp B/P Pulse Ox O2 Delivery O2 Flow Rate FiO2 08/26/16 09:04 96.9 79 12 134/60 94 Room Air Respiratory Function: Airway patent Mental Status: Alert/oriented Pain Level Intensity: 0 Hydration: Taking po fluids Complications during Recovery None apparent Follow-Up Instructions Instructions Per Surgeon SHIRLEY ARGUETA August 26, 2016 09:36
--- NOTE | 2016-08-26 14:19 | OPNOTEF ---
DATE OF SERVICE 08/26/2016 SURGEON Ran Robbins MD PREOPERATIVE DIAGNOSIS Dysphagia. 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 PROCEDURE Esophagogastroduodenoscopy with circumferential biopsies from distal esophagus via cold biopsy technique, sequential balloon dilatation of esophagus to 54-Georgian. ANESTHESIA TIVA BRIEF HISTORY/INDICATIONS Mr. Lau is an 86-year-old gentleman who has had a component of some dysphagia. As a result of the above indications, it was recommended that he undergo an EGD for further evaluation. FINDINGS Upon upper endoscopy, fortunately there was no evidence for any type of underlying neoplastic process. Stomach and duodenum were within normal limits. Within the esophagus, one could appreciate that there was a component of some narrowing within the cervical esophageal region as well as at the distal esophagus. No significant mucosal changes however were noted. Biopsies were obtained from the distal esophagus via cold biopsy technique. Given the fact that there was a component of some stricture present, sequential balloon dilatation was performed up to 54-Georgian without incident. DESCRIPTION OF PROCEDURE After informed consent was obtained, patient was brought to the endoscopy suite and placed on the table in left lateral decubitus position. The patient subsequently underwent total intravenous anesthesia by the nurse inspector casing at my request. Formal time-out was then completed. Next an Olympus gastroscope was inserted in the oral hypopharynx and subsequently the esophagus under direct visualization. Gastroscope was advanced through the esophagus, stomach, pylorus, duodenal bulb to the second portion of the duodenum. Scope was then slowly withdrawn. First and second portions of the duodenum were without abnormalities. No evidence of duodenitis or ulcerations were noted. Scope was withdrawn back to prepyloric region and antrum. Again no mucosal abnormalities were noted. A J-maneuver was then performed. Cardia and fundus were within normal limits. Endoscopically there was no evidence for hiatal hernia. Scope was allowed to straighten and slowly withdrawn. The remaining corpus of the stomach was well visualized and again without noted abnormalities. Scope was then continued to be slowly withdrawn until it was brought forth back up into the hypopharynx region. Scope was then re-advanced into the esophagus and advanced to the distal aspect of the esophagus. As stated above, there were no significant mucosal abnormalities present. One could appreciate a component of some narrowing within the cervical esophageal region as well as the distal esophagus. I elected to go ahead and proceed with some biopsies from the distal esophagus given the fact that there was a component of some narrowing. Biopsies were obtained from the distal esophagus via cold biopsy technique. Next, a sequential balloon dilatation was performed up to 54-Georgian at the distal esophagus. This did not result in any mucosal tear but did appear to be resulting in a component of some dilatation. The scope was then withdrawn with the balloon inflated back up into the cervical region. The balloon was unable to be brought forth up into the cervical region where there appeared to be additional narrowing. Balloon was then deflated and brought back forth to just below the cricopharyngeal region. Balloon was then reinflated up to a 54-Georgian at this location. This did again result in some dilatation of the esophagus although there was no evidence for mucosal tear. Balloon was then deflated slightly and withdrawn out through the cricopharyngeal region without difficulty. The patient tolerated the procedure without difficulty and was sent back to the preop area in stable condition. Await the biopsy results from today's EGD and proceed accordingly with further recommendations thereafter. [facility]
== END 2016-08-26 09:48 | disposition home or self-care (01) ==
LOC: SCU 06:51
PROVIDERS: ATTEND Surgery
DX: K22.2 Esophageal obstruction (principal); K20.9 Esophagitis, unspecified; R13.10 Dysphagia, unspecified; Z95.0 Presence of cardiac pacemaker; E11.9 Type 2 diabetes mellitus without complications; E78.00 Pure hypercholesterolemia, unspecified; I10 Essential (primary) hypertension; N40.0 Benign prostatic hyperplasia without lower urinary tract symptoms; Z79.82 Long term (current) use of aspirin; Z79.1 Long term (current) use of non-steroidal anti-inflammatories (NSAID); Z79.899 Other long term (current) drug therapy; Z79.84 Long term (current) use of oral hypoglycemic drugs; Z87.891 Personal history of nicotine dependence
CPT/HCPCS: 43239; 43249; 82948; 88305; J7120